=== PATIENT | male | born 1940 | race Caucasian/White ===

== ENCOUNTER 2017-03-24 12:23 | Inpatient (IN) ==
--- NOTE | 2017-03-24 12:34 | Emergency Department Report ---
General Adult HPI - General Stated complaint: Weak,SOA <Apple Chavez 03/24/17 12:35> Time Seen by Provider: 03/24/17 12:25 <Apple Chavez 03/24/17 12:35> Source: patient, EMS <Apple Chavez 03/24/17 12:35> Mode of arrival: EMS <Apple Chavez 03/24/17 12:35> Limitations: no limitations <Apple Chavez 03/24/17 12:35> - History of Present Illness HPI narrative: For the last week he has been having some trouble with weakness. He called EMS today due to feeling SOA however. Had the door open and the AC on as he felt it was easier to breath with the cold air. He does not wear O2 at home but was placed on O2 per EMS due to RA sats of 85%. He does have a history of CHF as well. Denies any fever/chills or chest pain. Has not had an appetite at home but has been taking his Lasix. Was given an Albuterol treatment per EMS en route. <Apple Chavez 03/24/17 13:49> Onset (ago): week(s) (For the last week) <Apple Chavez 03/24/17 12:35> Severity: moderate <Apple Chavez 03/24/17 12:35> Consistency: constant <Apple Chvaez 03/24/17 12:35> Relieving factors: none <Apple Chavez 03/24/17 12:35> Exacerbating factors: none <Apple Chavez 03/24/17 12:35> Associated symptoms: cough, loss of appetite, malaise, shortness of breath < Apple Chavez 03/24/17 12:35> Treatments prior to arrival: none <Apple Chavez 03/24/17 12:35> - Related Data Home Medications Medication Instructions Recorded Confirmed Allopurinol [Zyloprim] 400 mg PO DAILY 03/24/17 03/24/17 Amiodarone [Pacerone] 200 mg PO DAILY 03/24/17 03/24/17 Aspirin [Aspirin EC] 81 mg PO DAILY 03/24/17 03/24/17 Atorvastatin [Lipitor] 40 mg PO HS 03/24/17 03/24/17 Carvedilol [Carvedilol] 6.25 mg PO BID 03/24/17 03/24/17 Docusate Sodium [Colace] 100 mg PO BID 03/24/17 03/24/17 Furosemide [Lasix] 40 mg PO BID 03/24/17 03/24/17 Lisinopril [Prinivil] 2.5 mg PO HS 03/24/17 03/24/17 Nitroglycerin 0.4 mg SL Q5MIN3 PRN 03/24/17 03/24/17 Omeprazole [Prilosec] 20 mg PO DAILY 03/24/17 03/24/17 Potassium Chloride [Klor-Con M20] 20 meq PO BID 03/24/17 03/24/17 <Nold,Apple 03/24/17 12:35> Allergies Allergy/AdvReac Type Severity Reaction Status Date / Time captopril Allergy Unknown Verified 03/24/17 12:58 Penicillins Allergy Unknown Verified 03/24/17 12:58 <Nold,Apple 03/24/17 12:35> Review of Systems Constitutional: Denies: fever, chills <Nold,Apple 03/24/17 12:35> ENT: Denies: ear pain, throat pain, congestion <Nold,Apple 03/24/17 12:35 > Cardiovascular: Reports: dyspnea on exertion. Denies: chest pain, palpitations , edema <Nold,Apple 03/24/17 12:35> Respiratory: Reports: cough, dyspnea, wheezes <Nold,Apple 03/24/17 12:35> Gastrointestinal: Denies: abdominal pain, nausea, vomiting, diarrhea <Nold, Apple 03/24/17 12:35> Integumentary: Denies: rash <Nold,Apple 03/24/17 12:35> Neurological: Reports: weakness. Denies: headache, numbness, paresthesias < Nold,Apple 03/24/17 12:35> PFSH Gout CHF Renal disease Hyperlipidemia GERD Epidural hematoma with craniotomy DE atrial fibrillation PE osteoarthritis <Apple Chavez 03/24/17 13:32> Surgical History: appendectomy. arthroscopy of knee <Apple Chavez 13:32> - Social History Smoking status: Never smoker <Apple Chavez 03/24/17 13:29> Substance use type: does not use <Apple Chavez 03/24/17 13:29> Alcohol intake frequency: does not drink <Apple Chavez 03/24/17 13:29> Physical Exam - Limitations Limitations: no limitations <Apple Chavez 03/24/17 12:35> - General General appearance: alert, in no apparent distress <Apple Chavez 03/24/17 12:35> - Normal Exams: ENMT:: No facial trauma, nasal exudates, pharyngeal erythema, or exudates are noted <Apple Chavez 03/24/17 12:35> Neck:: Full range of motion, without adenopathy, JVD, bruits or thyromegaly < Apple Chavez 03/24/17 12:35> Cardiovascular:: Regular rate and rhythm, without murmur or gallop, Pulses 2+ all extremities, capillary refill, <2 seconds all extremities <Apple Chavez 03/24/17 12:35> Abdomen:: Bowel sounds positive, soft, non-tender, non-distended, no hepatosplenomegaly, masses or bruits noted <Apple Chavez 03/24/17 12:35> Lymphatic:: No lymphadenopathy, or lymphedema noted <Apple Chavez 03/24/17 12:35> Integumentary:: No rashes, hives, or bruising noted <Apple Chavez 03/24/17 12:35> Neurological:: Patient is alert, and oriented <Apple Chavez 03/24/17 12:35> Psychiatric:: Patient exhibits, appropriate attention, emotion and affect < Apple Chavez 03/24/17 12:35> - Respiratory Respiratory exam: Present: wheezes (fine end expiratory wheezes throughout, diminished throughout. ) <Apple Chavez - 03/24/17 12:35> Course Vital Signs Temperature 96.8 F 03/24/17 12:25 Pulse Rate 75 03/24/17 12:25 Respiratory Rate 22 03/24/17 12:25 Blood Pressure 127/78 03/24/17 12:25 Pulse Oximetry 94 03/24/17 12:25 Temperature 96.8 F 03/24/17 12:25 Pulse Rate 75 03/24/17 14:30 Respiratory Rate 24 03/24/17 14:30 Blood Pressure 117/77 03/24/17 14:30 Pulse Oximetry 94 03/24/17 14:30 <Apple Chavez - 03/24/17 13:29> Medical Decision Making - MDM Narrative Medical decision making narrative: WBC is normal. Changes noted on CMP. Troponin is negative. BNP is elevated at 49,000. Reviewed chest xray today. Does show moderate sized pleural effusion. Did attempt to take him off of the O2 but sats back down into the 80s. Did discuss with Dr King and will accept for admission at this time. <Apple Chavez - 03/24/17 15:17> - Differential Diagnosis DD: sepsis, pneumonia, CHF excerbation, UTI, influenza, general weakness, < Apple Chavez - 03/24/17 12:35> - Lab Data Lab results reviewed: Yes: I reviewed the patient's lab results. <Apple Chavez - 03/24/17 13:33> Result diagrams: 03/24/17 12:53 03/24/17 12:53 <Apple Chavez - 03/24/17 12:35> Lab Results 03/24/17 03/24/17 03/24/17 Range/Units 12:53 12:53 12:53 WBC 10.5 (4.5-11.0) T/MM3 RBC 5.23 (4.50-5.90) M/MM3 Hgb 15.5 (13.5-17.5) GM/DL Hct 48.9 (41-53) % MCV 93.5 (80-100) UM3 MCH 29.6 (26-34) UUG MCHC 31.7 (31-37) GM/DL RDW Std Deviation 64.8 H (36.9-50.2) FL Plt Count 137 (130-400) T/MM3 MPV 12.1 (9.4-12.4) UM3 Immature Gran % (Auto) Not performed Neut % (Auto) Not performed Lymph % (Auto) Not performed [place] % (Auto) Not performed Eos % (Auto) Not performed Baso % (Auto) Not performed Neut # (Auto) Not performed Lymph # (Auto) Not performed [place] # (Auto) Not performed Eos # (Auto) Not performed Baso # (Auto) Not performed Abs Immat Gran (auto) Not performed Neutrophils % (Manual) 83.0 H (33-66) % Band Neutrophils % 4.0 (0-6) % Lymphocytes % (Manual) 3.0 L (23-45) % Monocytes % (Manual) 10.0 H (0-9.0) % Neutrophils # (Manual) 8.7 H (1.8-7.7) T/MM3 Band Neutrophils # 0.4 T/MM3 Lymphocytes # (Manual) 0.3 L (1-4.8) T/MM3 Monocytes # (Manual) 1.1 H (0-0.8) T/MM3 Nucleated RBCs 1 Poikilocytosis 2+ Anisocytosis 2+ Tear Drop Cells 1+ Ovalocytes 1+ Rehan Cells 2+ RBC Morph Comment Abnormal Turbidity < 20 (0-20) Sodium 143 (134-144) MEQ/L Potassium 3.7 (3.6-5) MEQ/L Chloride 96 L (98-107) MEQ/L Carbon Dioxide 33 H (22-30) MEQ/L Anion Gap 14 (5-15) MEQ/L BUN 45.0 H (9-20) MG/DL Creatinine 2.0 H (0.8-1.5) MG/DL GFR Calculation 33 BUN/Creatinine Ratio 23 (6-26) RATIO Glucose 103 (75-110) MG/DL Calculated Osmolality 287 H (261-280) MOSM/KG Calcium 9.1 (8.4-10.2) MG/DL Total Bilirubin 2.10 H (0.20-1.30) MG/DL Icterus Index < 2 (0-7) AST 309 H (17-59) U/L ALT 89 H (21-72) U/L Alkaline Phosphatase 148 H (38-126) U/L Troponin I 0.040 (0-0.12) ng/ml B-Natriuretic Peptide 43471 H (0-175) pg/mL Total Protein 7.5 (6.3-8.2) G/DL Albumin 3.8 (3.5-5.0) G/DL Globulin 3.7 H (2.4-3.6) G/DL Albumin/Globulin Ratio 1.0 L (1.1-2.2) RATIO Specimen Hemolysis < 15 (0-25) Influenza Type A (PCR) Negative (Negative) Influenza Type B (PCR) Negative (Negative) <Apple Chavez - 03/24/17 13:29> - Radiology Data Radiology results reviewed: Yes: I reviewed the patient's radiology results. < Apple Chavez - 03/24/17 13:33> Date of Exam: 03/24/17 Ordering Provider: Apple Chavez APRN Type of Exam(s): XR chest 2V Reason for Exam(s): dyspnea EXAM: XR chest 2V COMPARISON: 08/02/2013. 04/26/2011. 04/18/2011. HISTORY: dyspnea . Fatigue. Cough with bloody sputum. Shortness of air for a few weeks. FINDINGS: The heart is enlarged. The bibasilar is mildly prominent. The left lung is relatively clear. There is obscuration of the right hemidiaphragm and blunting of the right costophrenic angle and had an opacity at the right mid and lower lung. There is no evidence for a pneumothorax. Degenerative changes of the right shoulder is noted. IMPRESSION: 1. Cardiomegaly. 2. Interval development of a moderate-sized right pleural effusion and right mid and lower lung atelectasis or consolidation. Clinical correlation is suggested. LOCATION OF DICTATION: [facility] [place] . <Apple Chavez 03/24/17 13:33> - EKG Data EKG #1 EKG attestation: Yes: I reviewed and interpreted this EKG. <JuneNaifNathaniel M 13:39> EKG shows normal: sinus rhythm, intervals, ST-T waves <June,Nathaniel 03/24/17 13:39> [place]/QRS: IVCD <June,Nathaniel 03/24/17 13:39> Disposition Clinical Impression: Congestive heart failure Qualifiers: Congestive heart failure type: unspecified Congestive heart failure chronicity : chronic Qualified Code(s): I50.9 - Heart failure, unspecified <MariamjenniferApple 03/24/17 14:36> Disposition: 02 To [facility] [place] Acute Care <MariamjenniferApple 03/24/17 14:36> Condition: Stable <KathyApple 03/24/17 14:36> Instructions: <MariamjenniferApple 03/24/17 12:35> Prescriptions: No Action Aspirin [Aspirin EC] 81 mg PO DAILY Omeprazole [Prilosec] 20 mg PO DAILY Allopurinol [Zyloprim] 400 mg PO DAILY Docusate Sodium [Colace] 100 mg PO BID Carvedilol [Carvedilol] 6.25 mg PO BID Potassium Chloride [Klor-Con M20] 20 meq PO BID Lisinopril [Prinivil] 2.5 mg PO HS Atorvastatin [Lipitor] 40 mg PO HS Nitroglycerin 0.4 mg SL Q5MIN3 PRN PRN Reason: Chest Pain Amiodarone [Pacerone] 200 mg PO DAILY Furosemide [Lasix] 40 mg PO BID <MariamjenniferApple 03/24/17 12:35> Referrals: Uday Andrews MD [Physician] - <KathyApple 03/24/17 12:35> Forms: <KathyApple 03/24/17 12:35> Time of Disposition: 14:36 <MariamjenniferApple Quin 03/24/17 14:36> - Seen By: midlevel <Apple Chavez 03/24/17 14:36>
--- OUTSIDE RECORDS SUMMARY | 2017-03-24 13:00 | External Medical Summary | Referral Summary ---
:1940 Author [facility] Address [address] [place] [address] [place] [address] Care Team Providers Name Role Phone Hesham Samayoa Primary Care Physician Encounter VC Date(s): 07/03/15 - 07/03/15 [facility] [place] [phone] [place] Discharge Disposition: 01-Home or Self Care Attending Physician: Hesham Samayoa DO Admitting Physician: Hesham Samayoa DO Vital Signs Most recent to oldest [Reference Range]: 1 Peripheral Pulse Rate [60-100 bpm] 73 bpm (07/03/15 1:00 PM) Blood Pressure [90-140/60-90 mmHg] 110/90 mmHg (07/03/15 1:00 PM) SpO2 97 % (07/03/15 1:00 PM) Problem List Condition Effective Dates Status Health Status Informant Acute pain(Confirmed) Active At risk of pressure sore(Confirmed) Active Atrial fibrillation Active (disorder)(Confirmed) Benign essential Active hypertension(Confirmed) Chest pain on exertion(Confirmed) Active patient Chronic renal failure syndrome Active (disorder)(Confirmed) Coronary arteriosclerosis Active (disorder)(Confirmed) Edema(Confirmed) Active patient Gout (disorder)(Confirmed) Active Obesity(Confirmed) Active patient Tissue perfusion Active alteration(Confirmed)1 1Problem added automatically by system based on initiation of Tissue Perfusion Cerebral Plan of Care Allergies, Adverse Reactions, Alerts Substance Reaction Severity Status penicillin Active Medications allopurinol 100 mg oral tablet 100 mg 1 tabs, Oral, BID, X 90 days, # 180 tabs, 1 Refill(s), Pharmacy: [facility], 1 tabs Oral BID,x90 days Start Date: 04/11/15 Stop Date: 10/08/15 Status: Orderedamiodarone 200 mg oral tablet 200 mg 1 tabs, Oral, Daily, X 90 days, # 90 tabs, 1 Refill(s), Pharmacy: [facility], 1 tabs Oral Daily,x90 days Start Date: 04/11/15 Stop Date: 10/08/15 Status: Orderedaspirin 81 mg oral tablet 81 mg 1 tabs, Oral, Daily, # 30 tabs, 0 Refill(s), Pharmacy: [facility], 1 tabs Oral Daily Start Date: 04/11/15 Status: Orderedatorvastatin 40 mg oral tablet See Instructions, TAKE 1 TABLET AT BEDTIME ONCE A DAY, # 90 tabs, 3 Refill(s) , Pharmacy: [facility], TAKE 1 TABLET AT BEDTIME ONCE A DAY Start Date: 04/11/15 Status: OrderedcloNIDine 0.1 mg oral tablet 0.2 mg 2 tabs, Oral, BID, # 120 tabs, 0 Refill(s), other reason (Rx), 2 tabs Oral BID,x30 days Start Date: 06/17/15 Stop Date: 07/17/15 Status: OrderedCoreg 25 mg oral tablet 25 mg 1 tabs, Oral, BID, # 60 tabs, 0 Refill(s), other reason (Rx) Start Date: 06/17/15 Status: Ordereddocusate sodium 100 mg oral tablet 100 mg 1 tabs, Oral, BID, # 180 tabs, 3 Refill(s), Pharmacy: [facility], 1 tabs Oral BID,x90 days Start Date: 04/11/15 Stop Date: 04/05/16 Status: OrderedLasix 40 mg oral tablet 40 mg 1 tabs, Oral, BID, X 90 days, # 180 tabs, 1 Refill(s), Pharmacy: [facility], 1 tabs Oral BID,x90 days Start Date: 04/11/15 Stop Date: 10/08/15 Status: Orderedlisinopril 10 mg oral tablet 10 mg 1 tabs, Oral, Daily, # 30 tabs, 0 Refill(s), other reason (Rx), 1 tabs Oral Daily Start Date: 07/03/15 Status: OrderedMiscellaneous DME DME Item DuoDerm extra thin CGF dressing. Size 4" x 4" diag - L89.90, See Instructions, # 1 boxes, 0 Refill(s), Pharmacy: [facility] #[id number], DuoDerm extra thin CGF dressing. Size 4" x 4"; diag - L89.90, Supply Start Date: 06/06/15 Status: Orderedomeprazole 20 mg oral delayed release capsule 20 mg 1 caps, Oral, Daily, # 90 caps, 0 Refill(s), Pharmacy: [facility], 1 caps Oral Daily Start Date: 04/11/15 Status: Orderedpotassium chloride 20 mEq oral tablet, extended release 20 mEq 1 tabs, Oral, Daily, X 90 days, # 90 tabs, 1 Refill(s), Pharmacy: [facility], 1 tabs Oral Daily,x90 days Start Date: 04/11/15 Stop Date: 10/08/15 Status: Ordered Results No data available for this section Immunizations No data available for this section Procedures Procedure Date Related Diagnosis Body Site Bypass Graft Coronary Artery1 08/15/13 Angioplasty2 Appendectomy 1auto-populated from documented surgical case2X 5 Social History Social History Type Response Smoking Status Former smoker; Type: Cigarettes; Type: Cigars; Number of years: 301 1Quit at age 51 Assessment and Plan Extracted from: Title: Office Visit Note Author: Hesham Samayoa DO Date: 07/03/15 Assessment/Plan HTN (hypertension) 1. Blood pressure is better controlled. 2. Continue with the current regimen of lisinopril 10 mg daily, clonidine 0.2 mg daily and carvedilol 25 mg twice a day. 3. Low salt diet recommended. 4. Follow-up in a month for blood pressure management. 5. Continue with wound care for management of the ulcer on the left lower extremity. Ordered: Office Visit Level 3 Est [id number] Orders: lisinopril, 10 mg 1 tabs, Oral, Daily, # 30 tabs, 0 Refill(s), other reason (Rx), 1 tabs Oral Daily
--- OUTSIDE RECORDS SUMMARY | 2017-03-24 13:00 | External Medical Summary | Referral Summary ---
:1940 Author Organization [facility] [place] [address] Care Team Providers Name Role Phone Hesham Samayoa Primary Care Physician Encounter VC Date(s): 10/07/14 - 10/07/14 [facility] [place] [phone] [place] Discharge Disposition: 01-Home or Self Care Attending Physician: Uday Andrews MD Admitting Physician: Uday Andrews MD Vital Signs Most recent to oldest [Reference Range]: 1 Temperature Tympanic [36.6-38.1 degC] 37.5 degC (10/07/14 2:34 PM) Blood Pressure [90-140/60-90 mmHg] 162/100 mmHg *HI* (10/07/14 2:34 PM) Problem List Condition Effective Dates Status [...] days, # 180 tabs, 1 Refill(s), Pharmacy: [facility], 1 tabs Oral BID,x90 days Start Date: 04/11/15 Stop Date: 10/08/15 Status: Orderedamiodarone 200 mg oral tablet 200 mg 1 tabs, Oral, Daily, X 90 days, # 90 tabs, 1 Refill(s), Pharmacy: [facility], 1 tabs Oral Daily,x90 days Start Date: 04/11/15 Stop Date: 10/08/15 Status: Orderedaspirin 81 mg oral tablet 81 mg 1 tabs, Oral, Daily, # 30 tabs, 0 Refill(s), Pharmacy: [facility], 1 tabs Oral Daily Start Date: 04/11/15 Status: Orderedatorvastatin 40 mg oral tablet See Instructions, TAKE 1 TABLET AT BEDTIME ONCE A DAY, # 90 tabs, 3 Refill(s) , Pharmacy: [facility], TAKE 1 TABLET AT BEDTIME ONCE A DAY Start Date: 04/11/15 Status: OrderedCoreg 6.25 mg oral tablet See Instructions, TAKE 1 TABLET TWICE A DAY, # 180 tabs, 1 Refill(s), Pharmacy: [facility], TAKE 1 TABLET TWICE A DAY Start Date: 04/11/15 Status: Ordereddocusate sodium 100 mg oral tablet 100 mg 1 tabs, Oral, BID, # 180 tabs, 3 Refill(s), Pharmacy: [facility], 1 tabs Oral BID,x90 days Start Date: 04/11/15 Stop Date: 04/05/16 Status: OrderedLasix 40 mg oral tablet 40 mg 1 tabs, Oral, BID, X 90 days, # 180 tabs, 1 Refill(s), Pharmacy: [facility], 1 tabs Oral BID,x90 days Start Date: 04/11/15 Stop Date: 10/08/15 Status: Orderedlisinopril 10 mg oral tablet 10 mg 1 tabs, Oral, Daily, # 30 tabs, 0 Refill(s), Pharmacy: [facility] # [id number], 1 tabs Oral Daily Start Date: 04/11/15 Status: Orderedomeprazole 20 mg oral delayed release capsule 20 mg 1 caps, Oral, Daily, # 90 caps, 0 Refill(s), Pharmacy: [facility], 1 caps Oral Daily Start Date: 04/11/15 Status: Orderedpotassium chloride 20 mEq oral tablet, extended release 20 mEq 1 tabs, Oral, Daily, X 90 days, # 90 tabs, 1 Refill(s), Pharmacy: [facility], 1 tabs Oral Daily,x90 days Start Date: 04/11/15 Stop Date: 10/08/15 Status: Ordered Results Hematology Most recent to oldest [Reference Range]: 1 WBC [4.8-10.8 10*3/uL] 9.1 10*3/uL (10/07/14 3:20 PM) RBC [4.60-6.20 10*6/uL] 5.17 10*6/uL (10/07/14 3:20 PM) Hgb [14.0-18.0 gm/dL] 15.2 gm/dL (10/07/14 3:20 PM) Hct [42.0-52.0 %] 46.3 % (10/07/14 3:20 PM) MCV [82.0-99.0 fL] 89.6 fL (10/07/14 3:20 PM) MCH [27.0-32.0 pg] 29.4 pg (10/07/14 3:20 PM) MCHC [32.0-36.0 gm/dL] 32.8 gm/dL (10/07/14 3:20 PM) RDW [11.5-14.5 %] 15.2 % *HI* (10/07/14 3:20 PM) Platelet [150-400 10*3/uL] 204 10*3/uL (10/07/14 3:20 PM) MPV [8.8-14.8 fL] 12.2 fL (10/07/14 3:20 PM) Immature Granulocytes [0.0-1.0 %] 0.1 % (10/07/14 3:20 PM) Neutrophils [51-75 %] 72 % (10/07/14 3:20 PM) Lymphocytes [20-46 %] 18 % *LOW* (10/07/14 3:20 PM) Monocytes [4-11 %] 8 % (10/07/14 3:20 PM) Eosinophils [0-4 %] 1 % (10/07/14 3:20 PM) Basophils [0-2 %] 0 % (10/07/14 3:20 PM) Neutro Absolute [1.90-7.00 10*3] 6.56 10*3 (10/07/14 3:20 PM) Lymph Absolute [0.80-3.30 10*3] 1.64 10*3 (10/07/14 3:20 PM) White Absolute [0.30-1.00 10*3] 0.72 10*3 (10/07/14 3:20 PM) Eos Absolute [0.00-0.50 10*3] 0.12 10*3 (10/07/14 3:20 PM) Baso Absolute [0.00-0.20 10*3] 0.03 10*3 (10/07/14 3:20 PM) Sed Rate [0-15 mm/hr] 6 mm/hr (10/07/14 3:20 PM) Chemistry Most recent to oldest [Reference Range]: 1 Sodium Lvl [135-144 mEq/L] 140 mEq/L (10/07/14 3:20 PM) Potassium Lvl [3.5-5.2 mEq/L] 4.1 mEq/L (10/07/14 3:20 PM) Chloride [99-111 mEq/L] 103 mEq/L (10/07/14 3:20 PM) CO2 [23-31 mEq/L] 27 mEq/L (10/07/14 3:20 PM) AGAP [3-20] 10 (10/07/14 3:20 PM) BUN [8-26 mg/dL] 16 mg/dL (10/07/14 3:20 PM) Glucose Lvl [70-99 mg/dL] 96 mg/dL (10/07/14 3:20 PM) Creatinine Lvl [0.72-1.25 mg/dL] 1.28 mg/dL *HI* (10/07/14 3:20 PM) eGFR [>60 mL/min] 55 mL/min 1 *ABN* (10/07/14 3:20 PM) Calcium Lvl [8.9-10.5 mg/dL] 9.5 mg/dL (10/07/14 3:20 PM) Albumin Lvl [3.4-4.8 gm/dL] 4.6 gm/dL (10/07/14 3:20 PM) Total Protein [6.2-8.1 gm/dL] 7.3 gm/dL (10/07/14 3:20 PM) Globulin [1.8-4.0 gm/dL] 2.7 gm/dL (10/07/14 3:20 PM) ALT [0-55 U/L] 11 U/L (10/07/14 3:20 PM) AST [5-34 U/L] 17 U/L (10/07/14 3:20 PM) Alk Phos [40-150 U/L] 102 U/L (10/07/14 3:20 PM) Bili Total [0.2-1.2 mg/dL] 0.5 mg/dL (10/07/14 3:20 PM) Uric Acid [3.5-7.2 mg/dL] 5.5 mg/dL (10/07/14 3:20 PM) LDL Direct [0-129 mg/dL] 72 mg/dL (10/07/14 3:20 PM) Hgb A1c [4.1-5.6 %] 5.4 % (10/07/14 3:20 PM) eAvg Glucose 108.3 mg/dL (10/07/14 3:20 PM) 1Result Comment: Multiply eGFR results by 1.21 for race. Immunizations No data available for this section Procedures Procedure Date Related Diagnosis Body Site Bypass Graft Coronary Artery1 08/15/13 Angioplasty2 Appendectomy 1auto-populated from documented surgical case2X 5 Social History Social History Type Response Smoking Status Former smoker; Type: Cigarettes; Type: Cigars; Number of years: 301 1Quit at age 51 Assessment and Plan Extracted from: Title: Office Visit Note Author: Uday Andrews MD Date: 10/07/14 Assessment/Plan Atrial fibrillation (disorder) Ordered: Comprehensive Metabolic Panel Benign essential hypertension Chronic renal failure syndrome (disorder) Coronary arteriosclerosis (disorder) Ordered: LDL Direct Gout (disorder) Ordered: CBC w/ Differential Sedimentation Rate Uric Acid Hyperglycemia Plan: I am going to place U on Diflucan. Use Monistat cream on the rash. Follow-up in one week if not improved. Continue all other current medications. Before your next appointment in 6 months I would like to check a lipid panel and a CMP and a uric acid and a sedimentation rate and a CBC. Today I'm checking a CBC uric acid sedimentation rate CMP and LDL. Ordered: Hemoglobin A1c Orders: fluconazole, 100 mg 1 tabs, Oral, Daily, X 10 days, # 10 tabs, 0 Refill(s), Pharmacy: [facility] #[id number], 1 tabs Oral Daily,x10 days Addendum by Uday Andrews MD on September He did have multiple red flat round rashes 2014 16:47:49 CDT on his abdomen axillary region and groin area. With like tinea or candidiasis. Addendum by Uday Andrews MD on September Recheck blood pressure was 132/82. 2014 16:49:52 CDT
--- OUTSIDE RECORDS SUMMARY | 2017-03-24 13:01 | External Medical Summary | Referral Summary ---
:1940 Author Organization [facility] [place] [address] Care Team Providers Name Role Phone Hesham Samayoa Primary Care Physician Encounter VC Date(s): 04/11/15 - 04/11/15 [facility] [place] [phone] Discharge Diagnosis: HTN (hypertension) Discharge Diagnosis: Gout (disorder) Discharge Diagnosis: Dependent edema Discharge Diagnosis: Coronary arteriosclerosis Discharge Disposition: 01-Home or Self Care Attending Physician: Hesham Samayoa DO Admitting Physician: Hesham Samayoa DO Vital Signs Most recent to oldest [Reference Range]: 1 Temperature Tympanic [36.6-38.1 degC] 36.9 degC (04/11/15 1:43 PM) Peripheral Pulse Rate [60-100 bpm] 92 bpm (04/11/15 1:43 PM) Blood Pressure [90-140/60-90 mmHg] 175/100 mmHg *HI* (04/11/15 1:43 PM) Problem List Condition Effective Dates Status [...] days, # 180 tabs, 1 Refill(s), Pharmacy: [facility], 1 tabs Oral BID,x90 days Start Date: 04/11/15 Stop Date: 10/08/15 Status: Orderedamiodarone 200 mg oral tablet 200 mg 1 tabs, Oral, Daily, X 90 days, # 90 tabs, 1 Refill(s), Pharmacy: [facility], 1 tabs Oral Daily,x90 days Start Date: 04/11/15 Stop Date: 10/08/15 Status: Orderedaspirin 81 mg oral tablet 81 mg 1 tabs, Oral, Daily, # 30 tabs, 0 Refill(s), Pharmacy: [facility], 1 tabs Oral Daily Start Date: 04/11/15 Status: Orderedatorvastatin 40 mg oral tablet See Instructions, TAKE 1 TABLET AT BEDTIME ONCE A DAY, # 90 tabs, 3 Refill(s) , Pharmacy: [facility], TAKE 1 TABLET AT BEDTIME ONCE A DAY Start Date: 04/11/15 Status: OrderedCoreg 6.25 mg oral tablet See Instructions, TAKE 1 TABLET TWICE A DAY, # 180 tabs, 1 Refill(s), Pharmacy: [facility], TAKE 1 TABLET TWICE A DAY Start Date: 04/11/15 Status: Ordereddocusate sodium 100 mg oral tablet 100 mg 1 tabs, Oral, BID, # 180 tabs, 3 Refill(s), Pharmacy: [facility], 1 tabs Oral BID,x90 days Start Date: 04/11/15 Stop Date: 04/05/16 Status: OrderedLasix 40 mg oral tablet 40 mg 1 tabs, Oral, BID, X 90 days, # 180 tabs, 1 Refill(s), Pharmacy: [facility], 1 tabs Oral BID,x90 days Start Date: 04/11/15 Stop Date: 10/08/15 Status: Orderedlisinopril 10 mg oral tablet 10 mg 1 tabs, Oral, Daily, # 30 tabs, 0 Refill(s), Pharmacy: [facility] # [id number], 1 tabs Oral Daily Start Date: 04/11/15 Status: Orderedomeprazole 20 mg oral delayed release capsule 20 mg 1 caps, Oral, Daily, # 90 caps, 0 Refill(s), Pharmacy: [facility], 1 caps Oral Daily Start Date: 04/11/15 Status: Orderedpotassium chloride 20 mEq oral tablet, extended release 20 mEq 1 tabs, Oral, Daily, X 90 days, # 90 tabs, 1 Refill(s), Pharmacy: [facility], 1 tabs Oral Daily,x90 days Start [...] Visit Note Author: Hesham Samayoa DO Date: 04/11/15 Assessment/Plan Arrhythmia 1. Continue with amiodarone and carvedilol as previous. 2. Follow-up with her neurologist at his scheduled appointment. Ordered: Office Visit Level 4 Est 64640 Coronary arteriosclerosis 1. As above. Dependent edema 1. Continue with Lasix twice a day. 2.Continue with potassium daily. 3. Low salt diet recommended. Gout (disorder) 1. Continue with allopurinol as previous. 2. No function tests in 3 months. HTN (hypertension) 1.Blood pressure continues to be elevated. 2. Increase lisinopril to 10 mg daily. 3. Low salt diet recommended. 4. Follow-up in one month for reevaluation. Mixed hyperlipidemia 1. Continue with atorvastatin as previous. 2.Healthy Lifestyle changes recommended. 3. Weight loss recommended. Ordered: Office Visit Level 4 Est 65745 Orders: allopurinol, 100 mg 1 tabs, Oral, BID, X 90 days, # 180 tabs, 1 Refill(s), Pharmacy: [facility], 1 tabs Oral BID,x90 days amiodarone, 200 mg 1 tabs, Oral, Daily, X 90 days, # 90 tabs, 1 Refill(s), Pharmacy: [facility], 1 tabs Oral Daily,x90 days aspirin, 81 mg 1 tabs, Oral, Daily, # 30 tabs, 0 Refill(s), Pharmacy: [facility], 1 tabs Oral Daily atorvastatin, See Instructions, TAKE 1 TABLET AT BEDTIME ONCE A DAY, # 90 tabs, 3 Refill(s), Pharmacy: [facility], TAKE 1 TABLET AT BEDTIME ONCE A DAY carvedilol, See Instructions, TAKE 1 TABLET TWICE A DAY, # 180 tabs, 1 Refill (s), Pharmacy: [facility], TAKE 1 TABLET TWICE A DAY docusate, 100 mg 1 tabs, Oral, BID, # 180 tabs, 3 Refill(s), Pharmacy: [facility], 1 tabs Oral BID,x90 days furosemide, 40 mg 1 tabs, Oral, BID, X 90 days, # 180 tabs, 1 Refill(s), Pharmacy: [facility], 1 tabs Oral BID,x90 days lisinopril, 10 mg 1 tabs, Oral, Daily, # 30 tabs, 0 Refill(s), Pharmacy: [facility] #[id number], 1 tabs Oral Daily omeprazole, 20 mg 1 caps, Oral, Daily, # 90 caps, 0 Refill(s), Pharmacy: [facility], 1 caps Oral Daily potassium chloride, 20 mEq 1 tabs, Oral, Daily, X 90 days, # 90 tabs, 1 Refill(s), Pharmacy: [facility], 1 tabs Oral Daily,x90 days
--- OUTSIDE RECORDS SUMMARY | 2017-03-24 13:01 | External Medical Summary | Referral Summary ---
:1940 Author Organization [facility] [place] [address] Care Team Providers Name Role Phone Hesham Samayoa Primary Care Physician Encounter VC Date(s): 06/17/15 - 06/17/15 [facility] [place] [phone]- Discharge Diagnosis: Chronic skin ulcer Discharge Diagnosis: Poorly-controlled hypertension Discharge Disposition: 01-Home or Self Care Attending Physician: Hesham Samayoa DO Admitting Physician: Hesham Samayoa DO Vital Signs Most recent to oldest [Reference Range]: 1 Temperature Tympanic [36.6-38.1 degC] 36.5 degC *LOW* (06/17/15 1:37 PM) Peripheral Pulse Rate [60-100 bpm] 71 bpm (06/17/15 1:37 PM) Blood Pressure [90-140/60-90 mmHg] 155/105 mmHg *HI* (06/17/15 1:37 PM) SpO2 96 % (06/17/15 1:37 PM) Problem List Condition Effective Dates Status [...] days, # 180 tabs, 1 Refill(s), Pharmacy: [facility], 1 tabs Oral BID,x90 days Start Date: 04/11/15 Stop Date: 10/08/15 Status: Orderedamiodarone 200 mg oral tablet 200 mg 1 tabs, Oral, Daily, X 90 days, # 90 tabs, 1 Refill(s), Pharmacy: [facility], 1 tabs Oral Daily,x90 days Start Date: 04/11/15 Stop Date: 10/08/15 Status: Orderedaspirin 81 mg oral tablet 81 mg 1 tabs, Oral, Daily, # 30 tabs, 0 Refill(s), Pharmacy: [facility], 1 tabs Oral Daily Start Date: 04/11/15 Status: Orderedatorvastatin 40 mg oral tablet See Instructions, TAKE 1 TABLET AT BEDTIME ONCE A DAY, # 90 tabs, 3 Refill(s) , Pharmacy: [facility], TAKE 1 TABLET AT [...] BID, # 180 tabs, 3 Refill(s), Pharmacy: [facility], 1 tabs Oral BID,x90 days Start Date: 04/11/15 Stop Date: 04/05/16 Status: OrderedLasix 40 mg oral tablet 40 mg 1 tabs, Oral, BID, X 90 days, # 180 tabs, 1 Refill(s), Pharmacy: [facility], 1 tabs Oral BID,x90 days Start Date: 04/11/15 Stop Date: 10/08/15 Status: Orderedlisinopril 20 mg oral tablet 20 mg 1 tabs, Oral, Daily, # 30 tabs, 2 Refill(s), Pharmacy: [facility] # [id number] Start Date: 06/09/15 Status: OrderedMiscellaneous DME DME Item DuoDerm extra thin CGF dressing. Size 4" x 4" diag - L89.90, See Instructions, # 1 boxes, 0 Refill(s), Pharmacy: [facility] #[id number], DuoDerm extra thin CGF dressing. Size 4" x 4"; diag - L89.90, Supply Start Date: 06/06/15 Status: Orderedomeprazole 20 mg oral delayed release capsule 20 mg 1 caps, Oral, Daily, # 90 caps, 0 Refill(s), Pharmacy: [facility], 1 caps Oral Daily Start Date: 04/11/15 Status: Orderedpotassium chloride 20 mEq oral tablet, extended release 20 mEq 1 tabs, Oral, Daily, X 90 days, # 90 tabs, 1 Refill(s), Pharmacy: [facility], 1 tabs Oral Daily,x90 [...] Visit Note Author: Hesham Samayoa DO Date: 06/17/15 Assessment/Plan Chronic skin ulcer 1. This wound appears to be worse compared to 2 weeks ago. 2. We will refer him to the wound clinic for farther evaluation and management. Ordered: Office Visit Level 4 Est 54368 Poorly-controlled hypertension 1. Blood pressure continues to be poorly controlled. 2. Continue avoiding salt. 3. Increase carvedilol to 25 mg twice a day. 4. Increase clonidine to 0.2 mg twice a day. 5. Continue with lisinopril 20 mg daily. 6. Follow-up in one week for reevaluation, sooner if symptomatic. Ordered: Office Visit Level 4 Est 60305 Orders: carvedilol, 25 mg 1 tabs, Oral, BID, # 60 tabs, 0 Refill(s), other reason (Rx) cloNIDine, 0.2 mg 2 tabs, Oral, BID, # 120 tabs, 0 Refill(s), other reason ( Rx), 2 tabs Oral BID,x30 days
--- OUTSIDE RECORDS SUMMARY | 2017-03-24 13:01 | External Medical Summary | Referral Summary ---
:1940 Author Organization [facility] [place] [address] Care Team Providers Name Role Phone Hesham Samayoa Primary Care Physician Encounter VC Date(s): 05/12/15 - 05/12/15 [facility] [place] [phone] [place] Discharge Diagnosis: Leg sore Discharge Diagnosis: Dystrophic nail Discharge Diagnosis: Hypertension, poor control Discharge Diagnosis: Onychomycosis of toenail Discharge Disposition: 01-Home or Self Care Attending Physician: Hesham Samayoa DO Admitting Physician: Hesham Samayoa DO Vital Signs Most recent to oldest [Reference Range]: 1 Temperature Tympanic [36.6-38.1 degC] 36.7 degC (05/12/15 1:18 PM) Peripheral Pulse Rate [60-100 bpm] 80 bpm (05/12/15 1:18 PM) Blood Pressure [90-140/60-90 mmHg] 146/100 mmHg *HI* (05/12/15 1:18 PM) Problem List Condition Effective Dates Status [...] days, # 180 tabs, 1 Refill(s), Pharmacy: Pharmacy, 1 tabs Oral BID,x90 days Start Date: 04/11/15 Stop Date: 10/08/15 Status: Orderedamiodarone 200 mg oral tablet 200 mg 1 tabs, Oral, Daily, X 90 days, # 90 tabs, 1 Refill(s), Pharmacy: Pharmacy, 1 tabs Oral Daily,x90 days Start Date: 04/11/15 Stop Date: 10/08/15 Status: Orderedaspirin 81 mg oral tablet 81 mg 1 tabs, Oral, Daily, # 30 tabs, 0 Refill(s), Pharmacy: Pharmacy, 1 tabs Oral Daily Start Date: 04/11/15 Status: Orderedatorvastatin 40 mg oral tablet See Instructions, TAKE 1 TABLET AT BEDTIME ONCE A DAY, # 90 tabs, 3 Refill(s) , Pharmacy: Pharmacy, TAKE 1 TABLET AT BEDTIME ONCE A DAY Start Date: 04/11/15 Status: OrderedCoreg 6.25 mg oral tablet See Instructions, TAKE 1 TABLET TWICE A DAY, # 180 tabs, 1 Refill(s), Pharmacy: Pharmacy, TAKE 1 TABLET TWICE A DAY Start Date: 04/11/15 Status: Ordereddocusate sodium 100 mg oral tablet 100 mg 1 tabs, Oral, BID, # 180 tabs, 3 Refill(s), Pharmacy: Pharmacy, 1 tabs Oral BID,x90 days Start Date: 04/11/15 Stop Date: 04/05/16 Status: OrderedLasix 40 mg oral tablet 40 mg 1 tabs, Oral, BID, X 90 days, # 180 tabs, 1 Refill(s), Pharmacy: Pharmacy, 1 tabs Oral BID,x90 days Start Date: 04/11/15 Stop Date: 10/08/15 Status: Orderedlisinopril 10 mg oral tablet 10 mg 1 tabs, Oral, Daily, # 30 tabs, 2 Refill(s), Pharmacy: Pharmacy, 1 tabs Oral Daily Start Date: 05/02/15 Status: Orderedomeprazole 20 mg oral delayed release capsule 20 mg 1 caps, Oral, Daily, # 90 caps, 0 Refill(s), Pharmacy: Pharmacy, 1 caps Oral Daily Start Date: 04/11/15 Status: Orderedpotassium chloride 20 mEq oral tablet, extended release 20 mEq 1 tabs, Oral, Daily, X 90 days, # 90 tabs, 1 Refill(s), Pharmacy: Pharmacy, 1 tabs Oral Daily,x90 days Start Date: 04/11/15 Stop Date: 10/08/15 Status: Orderedsenna 25 mg oral tablet 25 mg 1 tabs, Oral, BID, as needed for constipation, # 60 tabs, 0 Refill(s), Pharmacy: [facility] #[id number], 1 tabs Oral BID,PRN:as needed for constipation Start Date: 05/12/15 Stop Date: 06/12/15 Status: Ordered Results No data available for this section Immunizations No data available for this section Procedures Procedure Date Related Diagnosis Body Site Trimming of nondystrophic nails, any number 05/12/15 Bypass Graft Coronary Artery1 08/15/13 Angioplasty2 Appendectomy 1auto-populated from documented surgical case2X 5 Social History Social History Type Response Smoking Status Former smoker; Type: Cigarettes; Type: Cigars; Number of years: 301 1Quit at age 51 Assessment and Plan Extracted from: Title: Office Visit Note Author: Hesham Samayoa DO Date: 05/12/15 Assessment/Plan Constipation 1. Prescription sent out for senna. Take as directed on a when necessary basis. Dystrophic nail 1. His toenails are significantly thickened and dystrophic. All 10 toenails were trimmed today. Patient tolerated procedure well. Ordered: Office Visit Level 4 Est 37425 Trimming Of Nondystrophic Nails, Any Number 51033 Hypertension, poor control 1. His blood pressure is poorly controlled. 2. Low salt diet recommended. 3. Increase Coreg to 12.5 mg twice a day. 4. Increase lisinopril to 20 mg daily. 5. Follow-up in 2 weeks for blood pressure management, sooner if any new concerns. Ordered: Office Visit Level 4 Est 01941 Leg sore 1. Wound care done today sore on the left mid smith region. DuoDERM dressing was applied and wound care instructions provided. 2. Follow-up in 2 weeks for reevaluation, sooner if any new concerns. Ordered: Office Visit Level 4 Est 27134 Onychomycosis of toenail As above Ordered: Office Visit Level 4 Est 08288 Trimming Of Nondystrophic Nails, Any Number [id number] Orders: senna, 25 mg 1 tabs, Oral, BID, as needed for constipation, # 60 tabs , 0 Refill(s), Pharmacy: [facility] #[id number], 1 tabs Oral BID,PRN:as needed for constipation
--- OUTSIDE RECORDS SUMMARY | 2017-03-24 13:01 | External Medical Summary | Continuity of Care Document ---
:1940 Author Organization Via [facility] Allergies Active Description Code Type Severity Reaction Onset Reported/ Identified Relationship Clinical to Patient Status Yes penicillin NKMA N/A N/A 06/28/2013 Medications There is no data. Problems There is no data. Procedures Code [place] [address] Office or 07/03/2015 other outpatient visit for the evaluation and management of an established patient, which requires at least 2 of these 3 nick components: An expanded problem focused history; An expanded prob Results There is no data. Encounters ACCT No. Visit Discharge Status Pt. Type Provider Facility Loc./Unit Complaint Date/Time [id number] 03/07/2013 03/07/2013 CLS Outpatient 13:34:00 23:59:59 [id number] 07/03/2015 07/03/2015 DIS Outpatient [facility], [facility] blood 10 12:43:00 23:59:00 Hesham Vela pressure Clinic check [id number] 06/06/2015 06/06/2015 DIS Outpatient [facility], [facility] 2WK RCK 60 13:48:00 23:59:00 Hesham Vela FROM Clinic 3.14.16 [id number] 05/12/2015 05/12/2015 DIS Outpatient [facility], [facility] 1 month 89 13:11:00 23:59:00 Hesham Vela HTN Clinic [id number] 04/11/2015 04/11/2015 DIS Outpatient [facility], [facility] NPT EST 60 13:22:00 23:59:00 Hesham SCOTT FROM Clinic TECK [id number] 10/07/2014 10/07/2014 DIS Outpatient Darryl, [facility] med ck 36 14:09:00 23:59:00 Uday Vela [facility]
--- OUTSIDE RECORDS SUMMARY | 2017-03-24 13:01 | External Medical Summary | Referral Summary ---
:1940 Author Organization [facility] [place] [address] Care Team Providers Name Role Phone Hesham Samayoa Primary Care Physician Encounter VC Date(s): 06/06/15 - 06/06/15 [facility] [place] [phone] [place] Discharge Disposition: 01-Home or Self Care Attending Physician: Hesham Samayoa DO Admitting Physician: Hesham Samayoa DO Vital Signs Most recent to oldest [Reference Range]: 1 Peripheral Pulse Rate [60-100 bpm] 76 bpm (06/06/15 1:56 PM) Blood Pressure [90-140/60-90 mmHg] 170/95 mmHg *HI* (06/06/15 1:56 PM) Problem List Condition Effective Dates Status [...] days, # 180 tabs, 1 Refill(s), Pharmacy: [facility], 1 tabs Oral BID,x90 days Start Date: 04/11/15 Stop Date: 10/08/15 Status: Orderedamiodarone 200 mg oral tablet 200 mg 1 tabs, Oral, Daily, X 90 days, # 90 tabs, 1 Refill(s), Pharmacy: [facility], 1 tabs Oral Daily,x90 days Start Date: 04/11/15 Stop Date: 10/08/15 Status: Orderedaspirin 81 mg oral tablet 81 mg 1 tabs, Oral, Daily, # 30 tabs, 0 Refill(s), Pharmacy: [facility], 1 tabs Oral Daily Start Date: 04/11/15 Status: Orderedatorvastatin 40 mg oral tablet See Instructions, TAKE 1 TABLET AT BEDTIME ONCE A DAY, # 90 tabs, 3 Refill(s) , Pharmacy: [facility], TAKE 1 TABLET AT BEDTIME ONCE A DAY Start Date: 04/11/15 Status: OrderedcloNIDine 0.1 mg oral tablet 0.1 mg 1 tabs, Oral, BID, # 60 tabs, 0 Refill(s), Pharmacy: [facility] # [id number], 1 tabs Oral BID Start Date: 06/06/15 Status: OrderedCoreg 6.25 mg oral tablet See Instructions, TAKE 1 TABLET TWICE A DAY, # 180 tabs, 1 Refill(s), Pharmacy: [facility], TAKE 1 TABLET TWICE A DAY Start Date: 04/11/15 Status: Ordereddocusate sodium 100 mg oral tablet 100 mg 1 tabs, Oral, BID, # 180 tabs, 3 Refill(s), Pharmacy: [facility], 1 tabs Oral BID,x90 days Start Date: 04/11/15 Stop Date: 04/05/16 Status: OrderedLasix 40 mg oral tablet 40 mg 1 tabs, Oral, BID, X 90 days, # 180 tabs, 1 Refill(s), Pharmacy: [facility], 1 tabs Oral BID,x90 days Start Date: 04/11/15 Stop Date: 10/08/15 Status: Orderedlisinopril 10 mg oral tablet 10 mg 1 tabs, Oral, Daily, # 30 tabs, 2 Refill(s), Pharmacy: [facility], 1 tabs Oral Daily Start Date: 05/02/15 Status: OrderedMiscellaneous DME DME Item DuoDerm extra thin CGF dressing. Size 4" x 4" diag - L89.90, See Instructions, # 1 boxes, 0 Refill(s), Pharmacy: [facility] #[id number], DuoDerm extra thin CGF dressing. Size 4" x 4"; diag - L89.90, Supply Start Date: 06/06/15 Status: Orderedomeprazole 20 mg oral delayed release capsule 20 mg 1 caps, Oral, Daily, # 90 caps, 0 Refill(s), Pharmacy: [facility], 1 caps Oral Daily Start Date: 04/11/15 Status: Orderedpotassium chloride 20 mEq oral tablet, extended release 20 mEq 1 tabs, Oral, Daily, X 90 days, # 90 tabs, 1 Refill(s), Pharmacy: [facility], 1 tabs Oral Daily,x90 days Start Date: 04/11/15 Stop Date: 10/08/15 Status: Orderedsenna 25 mg oral tablet 25 mg 1 tabs, Oral, BID, as needed for constipation, # 60 tabs, 0 Refill(s), Pharmacy: [facility] #[id number], 1 tabs Oral BID,PRN:as needed for constipation [...] Visit Note Author: Hesham Samayoa DO Date: 06/06/15 Assessment/Plan Constipation 1. Continue with Dulcolax as previous. 2. Follow-up if worsening presentation, we may consider MiraLAX on a daily basis. 3. Recommended diet high in fiber and ensuring that he is drinking enough water. Ordered: Office Visit Level 4 Est 01939 HTN (hypertension) 1. Blood pressure continues to be poorly controlled. 2. Low salt diet recommended. 3. Continue with Coreg 12.5 mg twice a day. 4. Continue with lisinopril 20 mg daily. 5. We added clonidine 0.1 mg twice a day. 6. Follow-up in one week for reevaluation. Ordered: Office Visit Level 4 Est 94135 Visit for wound care 1. DuoDERM dressing was changed today. 2. Prescription was sent out for new patches, he is to change them every third day or as needed. 3. If the wound does not appear to be looking any better next week then we may consider sending him to wound care clinic. Ordered: cloNIDine, 0.1 mg 1 tabs, Oral, BID, # 60 tabs, 0 Refill(s), Pharmacy: [facility] #[id number], 1 tabs Oral BID Office Visit Level 4 Est 08591 Orders: [employer] Equipment Rx, DME Item DuoDerm extra thin CGF dressing. Size 4" x 4" diag - L89.90, See Instructions, # 1 boxes, 0 Refill(s), Pharmacy: [facility] #[id number], DuoDerm extra thin CGF dressing. Size 4" x 4"; diag - L89.90, Supply
--- NOTE | 2017-03-24 13:25 | XRay Report ---
EXAM: XR chest 2V COMPARISON: 08/02/2013. 04/26/2011. 04/18/2011. HISTORY: dyspnea . Fatigue. Cough with bloody sputum. Shortness of air for a few weeks. FINDINGS: The heart is enlarged. The bibasilar is mildly prominent. The left lung is relatively clear. There is obscuration of the right hemidiaphragm and blunting of the right costophrenic angle and had an opacity at the right mid and lower lung. There is no evidence for a pneumothorax. Degenerative changes of the right shoulder is noted. IMPRESSION: 1. Cardiomegaly. 2. Interval development of a moderate-sized right pleural effusion and right mid and lower lung atelectasis or consolidation. Clinical correlation is suggested. LOCATION OF DICTATION: INC .
[2017-03-24] MEDS ORDERED: FUROSEMIDE 40 MG/4 ML INJECTION IVP ONE (14:36)
--- NOTE | 2017-03-24 15:30 | History & Physical Report ---
History of Present Illness Date: 03/24/17 Chief complaint: difficulty breathing HPI: Juan De Leon is a 77-year-old male who lives at home with his with medical history significant for ischemic cardiomyopathy, coronary artery disease, paroxysmal atrial fibrillation (not anticoagulated due to history of traumatic ICH), chronic kidney disease, COPD. At baseline, he is a walker to ambulate. He sleeps in a hospital bed, and lately he has been unable to lay supine. He wears MESERET hose on a regular basis. He does not use home oxygen. Over the last 3 weeks he's been getting progressively short of breath, to the point where he has difficulty breathing even at rest. While lower extremity swelling from his knees down has improved, his has noticed increased swelling to his thighs and pelvis area. He is coughing up phlegm with blood mixed in with it. He describes penile swelling as well. He also has been complaining of lower abdominal pain and his appetite has been meniscal. He denies nausea or vomiting , dysuria or hematuria. He also has had a rash to his groin and lower abdomen and his has been applying vaginal cream but it's persisted. He has also developed ulcerations to both great toes, and his was planning on taking him to the wound care center. At baseline, both of his feet have a mottled appearance, but he denies any numbness or tingling. He states that both legs and very weak, especially his right one, and he fell a few days ago because his right leg simply gave out. His denies seeing any neurologic symptoms or strokelike symptoms. He denies fevers or chills, sinus congestion or drainage, sore throat or dysphagia. He denies dizziness, just feels very weak and has no energy. As abdominal pain and poor appetite. Has resulted in him not taking any of his home medications except for Lasix for the last 3 days. He has had some chest pain, but he states it has been higher up and not consistent with heart pain, which he is familiar with. His son and [id number] have been helping him at home, and they have noticed some mild confusion. After 3 days of requiring significant assistance to stand up, combined with hemoptysis and significant shortness of breath, he finally agreed to medical examination. He was taken to the emergency department on 03/24/17. His actually states that labs were drawn yesterday with a BMP of 39,000, and creatinine of 1.8. Baseline creatinine is about 1.4. In the ED, his BUN is 45 and creatinine was 2.0. Total bilirubin was 2.0, AST was 309, ALT 89, alkaline phosphatase 148. BMP was 49, 600. Troponin was 0.040. EKG showed sinus rhythm with an intraventricular conduction delay, left axis, no acute ST segment changes. Chest x-ray revealed moderate sized right pleural effusion and right lung atelectasis or consolidation. Also, cardiomegaly. He was requiring 6 L of oxygen to maintain saturations. He was given Lasix 40 mg IV for diuresis. Nursing staff attempted a Lassiter catheter but were unsuccessful secondary to swelling. Dr. King with the hospitalist service was contacted and the patient was admitted to inpatient status. Length of stay is expected to exceed 2 overnights, to address cardiorespiratory status and wound concerns. Review of Systems All systems PM: 10-point ROS was reviewed, no additional remarkable complaints except - Constitutional Constitutional: Present: as per HPI - EENMT Eyes: Absent: change in vision Balance: Present: as per HPI Nose: Present: as per HPI Mouth/Throat: Present: as per HPI - Cardiovascular Cardiovascular: Present: as per HPI Vascular: Present: see HPI - Respiratory Respiratory: Present: as per HPI - Gastrointestinal Gastrointestinal: Present: as per HPI - Genitourinary Genitourinary: Present: as per HPI - Musculoskeletal Musculoskeletal: Present: as per HPI - Integumentary/Breasts Integumentary: Present: as per HPI - Neurological Neurological: Present: as per HPI - Psychiatric Psychiatric: Present: as per HPI - Endocrine Endocrine: Absent: flushing, palpitations - Hematologic/Lymphatic Hematologic/Lymphatic: Absent: easy bleeding - Allergic/Immunologic Allergic/Immunologic: Absent: seasonal rhinorrhea Past Medical History Ischemic cardiomyopathy, last known ejection fraction of 25-30% in 2013 Coronary artery disease. Atrial fibrillation, paroxysmal. COPD Venous hypertension. Diffuse osteoarthritis. Gout Surgical History: Debridement of left tibial anterior ulcer in May 2015. CABG [address] Breanna Meng. Cardiac catheterization in July 2013. Bilateral craniotomy with epidural evacuation in July 2008. Multiple angioplasties. appendectomy. arthroscopy of knee. Wrist surgery Family History Updates: Father at age 64 of his third heart attack. His mother at age of 91 of old age and Alzheimer's. González is one of 9 siblings. 4 are still alive. Several of them have had heart disease, cancer and diabetes. A number of them have also suffered from traumatic brain bleeds, but they have all recovered from this injury. - Social History Smoking status: Former smoker (used to smoke 3 packs per day for 30 years, quit in 1991) Packs per day: 3 Packs-years: 90 Substance use type: does not use Alcohol intake frequency: does not drink (last budweiser was in 2008) Housing: house Household members: spouse Current occupational status: retired Previous occupational history: [employer] Social history: PCP - Dr. Samayoa CV - Dr. Long Medications Home Medications Medication Instructions Recorded Confirmed Type Allopurinol [Zyloprim] 400 mg PO DAILY 03/24/17 03/24/17 History Amiodarone [Pacerone] 200 mg PO DAILY 03/24/17 03/24/17 History Aspirin [Aspirin EC] 81 mg PO DAILY 03/24/17 03/24/17 History Atorvastatin [Lipitor] 40 mg PO HS 03/24/17 03/24/17 History Carvedilol [Carvedilol] 6.25 mg PO BID 03/24/17 03/24/17 History Docusate Sodium [Colace] 100 mg PO BID 03/24/17 03/24/17 History Furosemide [Lasix] 40 mg PO BID 03/24/17 03/24/17 History Lisinopril [Prinivil] 2.5 mg PO HS 03/24/17 03/24/17 History Nitroglycerin 0.4 mg SL Q5MIN3 PRN 03/24/17 03/24/17 History Omeprazole [Prilosec] 20 mg PO DAILY 03/24/17 03/24/17 History Potassium Chloride [Klor-Con M20] 20 meq PO BID 03/24/17 03/24/17 History Allergies Allergy/AdvReac Type Severity Reaction Status Date / Time captopril Allergy Unknown Verified 03/24/17 12:58 Penicillins Allergy Unknown Verified 03/24/17 12:58 Exam Vital Signs: Temperature 96.8 F 03/24/17 12:25 Pulse Rate 75 03/24/17 14:30 Respiratory Rate 24 03/24/17 14:30 Blood Pressure 117/77 03/24/17 14:30 Pulse Oximetry 94 03/24/17 14:30 Telemetry Rhythm: Sinus Rhythm Height/Weight/BMI: Height 1.83 m Weight 113 kg - Constitutional Present: mild distress, well nourished, well developed - Routine HEENT Exam Eye: Present: EOMI, PERRL. Absent: conjunctival icterus, scleral injection ENT: Present: mucous membranes dry, oropharynx clear. Absent: dentition normal (dentition is in very poor repair with multiple missing teeth) Comments: Scalp has scars on it from previous craniotomy - Routine Neck Exam Present: supple. Absent: lymphadenopathy - Routine Respiratory Exam Present: diminished air movement (left) Comments: Markedly reduced air movement to the right mid and lower lung - Routine Cardiovascular Exam Present: RRR, S1, S2 - Routine Abdominal Exam Present: normoactive bowel sounds, non tender, distended (mild) Comments: Pitting edema is noted to his lower abdomen, lower back and bilateral hip - Routine Exam Perineal: Present: erythema (malodorous-like rash to groin) - Routine Extremities Exam Present: edema (2-3+ pitting edema in bilateral thighs), extremity cold to touch (both feet were cold to touch). Absent: pulses intact (I was unable to readily palpate DP or PT pulses bilaterally), normal capillary refill (Refill was 5 seconds to both great toes) - Routine Skin Exam Present: wounds (necrotic ulcers to distal aspects of both great toes. There is also a pressure ulcer to the base of the first metatarsal bilaterally. There are smaller ulcerations noted on other toes as well.) - Routine Neurological Exam Present: alert, oriented X3, CN II-XII intact, moving all extremities, vision grossly intact, hearing grossly intact, normal speech. Absent: motor deficit ( he was unable to lift his arms to shoulder height because of "bad shoulders." Upper extremity and lower extremity strength otherwise was equal bilaterally.), altered mental status, facial asymmetry - Routine Psychiatric Exam Present: normal affect, normal thought process, cooperative Results - Labs CBC & Chem 7: 03/24/17 12:53 03/24/17 12:53 Assessment and Plan (1) Congestive heart failure Current visit: Yes Status: Acute (2) Pulmonary infarction Current visit: Yes Status: Acute (3) Systolic congestive heart failure, NYHA class 4 Current visit: Yes Status: Acute (4) Medical non-compliance Current visit: Yes Status: Acute Assessment and Plan: Admitting diagnoses Acute systolic congestive heart failure exacerbation. Hemoptysis and hypoxia. Acute kidney injury with creatinine of 2.0 on admission Hyperbilirubinemia and transaminitis Bilateral great toe ulcerations. Inguinal candidiasis Chronic comorbidities Ischemic cardiomyopathy, last known ejection fraction of 25-30% in 2013 Coronary artery disease. Atrial fibrillation, paroxysmal. COPD Venous hypertension. Diffuse osteoarthritis. Gout Plan Admit, inpatient status under the hospitalist service. Regarding heart failure exacerbation, will consult Dr. Long. Monitor on telemetry, trend troponin. Lasix 40 mg IV was given in the ED, will monitor response to this. We may need to reattempt placing a Lassiter, which was unsuccessful in the emergency department. Suspect elevated LFTs are a result of liver congestion secondary to heart failure. Echo has been ordered. VIOLET - will monitor response to diuresis. Consider renal sono if no improvement. Consult Dr. Rivera for bilateral toe ulcers. May need arterial dopplers and/ or intervention. Start nystatin powder for inguinal candidiasis. Check D-dimer d/t hemoptysis - though suspect his dyspnea/hypoxia are from CHF rather than pulmonary emboli. However, CXR was abnormal with a dilated appearing aorta, though CXR is malrotated. Check TSH and A1c. Discussed with Dr. King, Dr. Long and with Ronnie Stroud APRN. Code status: DNR. 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 echocardiogram has been performed and shows extensive clotting through the right atrium. Dr. Long and I have had a 20 minute long conversation with both patient and his . We explained extensively the very high risk of mortality that the patient is facing and offered the patient the opportunity to treat here in our ICU versus sending to [place] for the potential of further invasive procedures which may be lifesaving in the event that the atrial clots further emboli's into the pulmonary system. The patient made reasonable argument in front of his for not going to [place] and restated his position in with his DNR status. Patient is being transferred to the intensive care unit with a high-dose bolus heparin drip. He has knowingly declined transfer for potential cardiac interventional radiology procedures at this time. Critical care time performed 40 minutes without procedures DVT Prophylaxis: SCD's Resuscitation Status: Do Not Resuscitate - Physician Narrative Narrative: Date: 03/24/17 Time: 1522 Hospital Course Summary Disclaimer: The visit summary below is not to be considered part of the above Progress Note. Hospital Course: 03/24/17 Admit, inpatient status under the hospitalist service. Regarding heart failure exacerbation, will consult Dr. Long. Monitor on telemetry, trend troponin. Lasix 40 mg IV was given in the ED, will monitor response to this. We may need to reattempt placing a Lassiter, which was unsuccessful in the emergency department. Suspect elevated LFTs are a result of liver congestion secondary to heart failure. Echo has been ordered. VIOLET - will monitor response to diuresis. Consider renal sono if no improvement. Consult Dr. Rivera for bilateral toe ulcers. May need arterial dopplers and/ or intervention. Start nystatin powder for inguinal candidiasis. Check D-dimer d/t hemoptysis - though suspect his dyspnea/hypoxia are from CHF rather than pulmonary emboli. However, CXR was abnormal with a dilated appearing aorta, though CXR is malrotated. Check TSH and A1c. Discussed with Dr. King, Dr. Long and with Ronnie Stroud APRN. Code status: DNR.
[2017-03-24] MEDS: SALINE FLUSH 10ml SYRINGE IVF PRN ×2 (15:31→18:53)
[2017-03-24 16:10] VITALS: BMI 33.2
--- NOTE | 2017-03-24 18:15 | General Surgery Consult Note ---
Consult date: 03/24/17 Attending Physician: Javier King MD Reason for consult: wound care [facility] Patient Stated Medical History Congestive Heart Failure Yes Hypertension Yes Myocardial Infarction Yes: X3 Other Musculoskeletal Yes Cellulitis Yes Surgical History: Debridement of left tibial anterior ulcer in May 2015. CABG 5 in July [address] Breanna Meng. Cardiac catheterization in July 2013. Bilateral craniotomy with epidural evacuation in July 2008. Multiple angioplasties. appendectomy. arthroscopy of knee. Wrist surgery Family History: Father at age 64 of his third heart attack. His mother at age of 91 of old age and Alzheimer's. González is one of 9 siblings. 4 are still alive. Several of them have had heart disease, cancer and diabetes. A number of them have also suffered from traumatic brain bleeds, but they have all recovered from this injury. - Social History Smoking status: Former smoker (cheyanne 1991) Alcohol intake frequency: does not drink Housing: house Household members: spouse Previous occupational history: [employer] Home Medications Medication Instructions Recorded Confirmed Type Allopurinol [Zyloprim] 400 mg PO DAILY 03/24/17 03/24/17 History Amiodarone [Pacerone] 200 mg PO DAILY 03/24/17 03/24/17 History Aspirin [Aspirin EC] 81 mg PO DAILY 03/24/17 03/24/17 History Atorvastatin [Lipitor] 40 mg PO HS 03/24/17 03/24/17 History Carvedilol [Carvedilol] 6.25 mg PO BID 03/24/17 03/24/17 History Docusate Sodium [Colace] 100 mg PO BID 03/24/17 03/24/17 History Furosemide [Lasix] 40 mg PO BID 03/24/17 03/24/17 History Lisinopril [Prinivil] 2.5 mg PO HS 03/24/17 03/24/17 History Nitroglycerin 0.4 mg SL Q5MIN3 PRN 03/24/17 03/24/17 History Omeprazole [Prilosec] 20 mg PO DAILY 03/24/17 03/24/17 History Potassium Chloride [Klor-Con M20] 20 meq PO BID 03/24/17 03/24/17 History Allergies Allergy/AdvReac Type Severity Reaction Status Date / Time captopril Allergy Unknown Verified 03/24/17 12:58 Penicillins Allergy Unknown Verified 03/24/17 12:58 Review of Systems 10-point ROS: negative except for HPI and the following: - Cardiovascular Cardiovascular: Present: palpitations, edema/swelling - Respiratory Respiratory: Present: difficulty breathing - Gastrointestinal Gastrointestinal: Present: other (lower abd pain and poor appetite) - Musculoskeletal Musculoskeletal: Present: back pain, joint pain - Neurological Neurological: Present: muscle weakness - Vital Signs Last Vital Signs Temp 96.8 F 03/24/17 12:25 Pulse 70 03/24/17 16:38 Resp 24 03/24/17 16:05 BP 111/73 03/24/17 16:05 Pulse Ox 95 03/24/17 16:14 - Laboratory Result Diagrams: 03/24/17 12:53 03/24/17 12:53 Hospital Course Summary Disclaimer: The visit summary below is not to be considered part of the above Progress Note. Hospital Course: 03/24/17 Admit, inpatient status under the hospitalist service. Regarding heart failure exacerbation, will consult Dr. Long. Monitor on telemetry, trend troponin. Lasix 40 mg IV was given in the ED, will monitor response to this. We may need to reattempt placing a Lassiter, which was unsuccessful in the emergency department. Suspect elevated LFTs are a result of liver congestion secondary to heart failure. Echo has been ordered. VIOLET - will monitor response to diuresis. Consider renal sono if no improvement. Consult Dr. Rivera for bilateral toe ulcers. May need arterial dopplers and/ or intervention. Start nystatin powder for inguinal candidiasis. Check D-dimer d/t hemoptysis - though suspect his dyspnea/hypoxia are from CHF rather than pulmonary emboli. However, CXR was abnormal with a dilated appearing aorta, though CXR is malrotated. Check TSH and A1c. Discussed with Dr. King, Dr. Long and with Ronnie Stroud APRN. Code status: DNR.
[2017-03-24] MEDS ORDERED: HEPARIN - PHARMACY CONSULT MC ONE (18:31)
[2017-03-24] MEDS ORDERED: HEPARIN 1,000unit/ml INJECTION 10ml IV ONE (18:31)
[2017-03-24] MEDS: HEPARIN DRIP 20,000 UNIT/500 ML BAG IV SCH (19:08)
--- NOTE | 2017-03-24 19:31 | Pharmacy Consult ---
Pharmacy Consult-Heparin - Laboratory Information Heparin Plt Count 137 T/MM3 (130-400) 03/24/17 12:53 HEPARIN THERAPY: DAY 1 WEIGHT BASED DOSING: Bolus = 7,800 units IV Drip = increased to 1400 units/hr (35 ml/hr) Baseline PTT = NA Will order for tomorrow morning. Platelet baseline WNL's. Thank you
[2017-03-24] MEDS ORDERED: NITROGLYCERIN 0.4 MG SUBLINGUAL TABLET SL PRN (19:57)
[2017-03-24] MEDS: DOCUSATE SODIUM 100 MG CAPSULE PO SCH (20:52)
[2017-03-24] MEDS ORDERED: LISINOPRIL 2.5 MG TABLET PO SCH (21:00)
[2017-03-24] MEDS ORDERED: FUROSEMIDE 40 MG TABLET PO SCH (21:00)
[2017-03-24] MEDS ORDERED: ATORVASTATIN 40 MG TABLET PO SCH (21:00)
[2017-03-24] MEDS ORDERED: CARVEDILOL 6.25 MG TABLET PO SCH (21:00)
[2017-03-24] MEDS ORDERED: LORazepam 1 MG TABLET PO SCH (22:13)
--- NOTE | 2017-03-24 22:44 | Cardiology Consult Note ---
History of Present Illness Consult reason: congestive heart failure, known to you History of present illness: Mr. Boucher is a complex 77-year-old male well-known to me A history of noncompliance last time seen by me was in 2013 shortly following his CABG. He has chronic complex cardiovascular disease and multiple comorbidities see below. He is a poor historian. [facility] history of worsening shortness of breath with any activity and cough productive of a blood-tinged phlegm. His been expressing some orthopnea and he does wear his MESERET hose regularly. He does have some dull pain points at the upper abdomen crossed into the low substernal chest area on and off for some time, worse with swallowing and breathing. He feels is different from his previous angina. I was asked to see patient by Valeri Adams APRN and case was reviewed and discussed in person around 3:50 PM. Then I reviewed the echocardiogram discussed the results immediately with Dr. Urias hospitalist and we both went and discussed the findings and the plan of care with the patient and his . See Dr. Urias' s note as well as my assessment and plan currently. He shouldn't was started on IV heparin bolus and drip and transferred to ICU. There were offered transfer to tertiary care facility in [place] where cardiothoracic surgery and interventional radiology consultation obtained patient declined, understanding the potential for fatal pulmonary embolus, should atrial clot not respond and embolize. Initial treatment modalities included IV Lasix 40 mg given emergency department with poor response, unable to place a Lassiter catheter due to penile swelling. Other symptoms include swelling in the upper thighs no fever chills runny nose or sore throat no TIA or strokelike symptoms. No sharp chest pain with inspiration or jemma blood hemoptysis. Positive for ulcers on his feet seen by Dr. Richie Rivera for wound management. Cold feet with suspected peripheral arterial disease. Patient's baseline mobility is quite limited using a walker to ambulate at last couple days his legs been so weak he couldn't get up. Appetite has been poor with anorexia and has lost 10-15 pounds. He is requiring oxygen supplement to 4 L/m he is not on home O2 normally. No hematochezia or melena hematemesis or coffee-ground emesis some vague discomfort in the upper abdomen denies nausea or vomiting. Admission data showed a 12-lead EKG normal sinus rhythm and intraventricular conduction delay no acute ST depression or elevation of ischemia chest x-ray shows cardiomegaly aorta ectasia on a rotated film, aneurysm could not be excluded, a unilateral right pleural effusion and minimal if any pulmonic congestion. BNP 39,000 troponin normal. The creatinine 45 over 2.0 baseline 1.4 today was 1.8. Liver enzymes elevated AST 309 ALT 89 CBC unremarkable. Echocardiography see report. Telemetry shows normal sinus rhythm. Review of Systems All systems PM: 10-point ROS was reviewed, no additional remarkable complaints except - Constitutional Constitutional: Present: anorexia, weakness (generalized), weight loss. Absent : chills - Cardiovascular Cardiovascular: Absent: palpitations, syncope PFSH Patient Stated Medical History Paroxysmal atrial fibrillation 2013 Traumatic subdural hematoma in or about 2006 Heavy alcohol intake Congestive Heart Failure Yes Hypertension Yes Myocardial Infarction Yes: X3 including nonSTEMI in 2006 and in 2013 Other Musculoskeletal Yes Cellulitis Yes Surgical History: Debridement of left tibial anterior ulcer in May 2015. CABG [address] Breanna Meng. Cardiac catheterization in July 2013. Bilateral craniotomy with epidural evacuation in July 2008. Multiple angioplasties. appendectomy. arthroscopy of knee. Wrist surgery - Social History Smoking status: Former smoker (used to smoke 3 packs per day for 30 years, quit in 1991) Alcohol intake frequency: does not drink Current occupational status: retired Current residence: Apartment/Private Home Medications Home Medications Medication Instructions Recorded Confirmed Type Allopurinol [Zyloprim] 400 mg PO DAILY 03/24/17 03/24/17 History Amiodarone [Pacerone] 200 mg PO DAILY 03/24/17 03/24/17 History Aspirin [Aspirin EC] 81 mg PO DAILY 03/24/17 03/24/17 History Atorvastatin [Lipitor] 40 mg PO HS 03/24/17 03/24/17 History Carvedilol [Carvedilol] 6.25 mg PO BID 03/24/17 03/24/17 History Docusate Sodium [Colace] 100 mg PO BID 03/24/17 03/24/17 History Furosemide [Lasix] 40 mg PO BID 03/24/17 03/24/17 History Lisinopril [Prinivil] 2.5 mg PO HS 03/24/17 03/24/17 History Nitroglycerin 0.4 mg SL Q5MIN3 PRN 03/24/17 03/24/17 History Omeprazole [Prilosec] 20 mg PO DAILY 03/24/17 03/24/17 History Potassium Chloride [Klor-Con M20] 20 meq PO BID 03/24/17 03/24/17 History Allergies Allergy/AdvReac Type Severity Reaction Status Date / Time captopril Allergy Unknown Verified 03/24/17 12:58 Penicillins Allergy Unknown Verified 03/24/17 12:58 Exam Vital signs: Temperature 97.1 F 03/24/17 20:35 Pulse Rate 74 03/24/17 22:15 Respiratory Rate 25 H 03/24/17 22:15 Blood Pressure 122/76 03/24/17 22:15 Pulse Oximetry 96 03/24/17 22:15 - Constitutional mild distress, obese, other (chronically ill) - Routine HEENT Exam Head: Present: normocephalic Eye: Present: EOMI, PERRL ENT: Present: mucous membranes moist - Routine Neck Exam Present: JVD, normal carotid upstroke. Absent: carotid bruit, lymphadenopathy, thyromegaly - Routine Respiratory Exam Present: decreased breath sounds (right lung base with dullness to percussion. Positive left pleuritic friction rub), diminished air movement - Routine Cardiovascular Exam Present: RRR, S1 (distant), S2 (distant), no murmur, JVD. Absent: bradycardia, tachycardia - Routine Abdominal Exam Present: soft, normoactive bowel sounds, non distended, non tender - Routine Exam Penile: Present: swelling - Routine Extremities Exam Present: no edema (no significant edema at the ankles, skin shows hyperpigmentation and medial aspects lower legs), extremity cold to touch ( bilateral feet). Absent: cyanosis, clubbing, pulses intact (decreased pedal pulses bilaterally), normal capillary refill, calf tenderness - Routine Skin Exam Present: wounds, gangrene (the toes). Absent: intact - Routine Neurological Exam Present: alert, oriented X3, CN II-XII intact, moving all extremities, vision grossly intact, hearing grossly intact, normal speech. Absent: motor deficit, hemineglect, facial asymmetry - Routine Psychiatric Exam Present: normal affect, normal thought process, cooperative, good insight, good judgment. Absent: depressed Results 03/24/17 12:53 03/24/17 12:53 Cardiac Enzymes 03/24/17 Range/Units 18:52 Troponin I 0.095 D (0-0.12) ng/ml Intake and Output 03/24/17 03/24/17 03/24/17 06:59 14:59 22:59 Intake Total 178.333 / 178.333 Output Total 45 / 45 Balance 133.333 / 133.333 Intake: IV 58.333 / 58.333 Heparin Drip 20,000 unit In 500 58.333 / 58.333 ml @ 35 mls/hr IV .[id number] [facility] Rx#:[id number] Oral 120 / 120 Output: Urine 20 / 20 Urine Amount (Catheter) Other: Urine Appearance Clear Urine Color Dark Yellow Weight 111.1 kg Patient Weight 03/25/17 06:59 Weight 111.1 kg - Imaging and Cardiology Echo: report reviewed, other (July 2013 ischemic cardiopathy depressed ejection fraction of atrial enlargement significant valvular dysfunction) Cardiac cath: report reviewed, other (July 2013 90% mid LAD stenosis 75% first diagonal stenosis and 60% stenosis proximal LCx 70% stenosis obtuse marginal branch 100% stenosis RCA mid level 100% stenosis collaterals fail to office marginal branches distal RCA severe LV systolic dysfunction 2530 percent slip to CABG 5 Dr. Karla Meng his heart catheter was in setting of non-STEMI) - EKG Interpretation EKG: sinus rhythm, no acute changes Assessment and Plan - Assessment and Plan Congestive heart failure predominantly right-sided Right atrial clots, likely emboli in transit Suspected pulmonary emboli with possible pulmonary infarction and the unilateral pleural effusion Severe ischemic cardiopathy Pulmonary hypertension Coronary artery disease status post CABG Renal insufficiency acute on chronic Elevated liver enzymes likely from CHF Peripheral artery disease with feet ulcers and toes ' gangrene COPD Remote history of traumatic intracranial bleed/subdural hematoma DO NOT RESUSCITATE order Discussion as in history of present illness and Dr. rUias's note, IV heparin started. Risks and benefits discussed in detail and the in agreement Patient offered transfer to tertiary care facility for CT surgery and interventional radiology consultation he declined. He and his understand the possibility of fatal pulmonary embolus Close monitoring of liver enzymes Elected to keep amiodarone on board which has maintained sinus rhythm and help maintaining hemodynamic stability Hold atorvastatin until liver enzymes trend down Hold lisinopril and potassium due to poor urine output This time may keep by mouth Lasix at his home dose and closely monitor renal function Repeat chest x-ray Consider VQ lung scan in the morning Bilateral lower extremity venous Doppler Long-term prognosis unfortunately appears quite poor due to multiple severe comorbidities Short-term prognosis may be poor due to serious acute medical illness Hospital Course Summary Disclaimer: The visit summary below is not to be considered part of the above Progress Note. Hospital Course: 03/24/17 Admit, inpatient status under the hospitalist service. Regarding heart failure exacerbation, will consult Dr. Long. Monitor on telemetry, trend troponin. Lasix 40 mg IV was given in the ED, will monitor response to this. We may need to reattempt placing a Lassiter, which was unsuccessful in the emergency department. Suspect elevated LFTs are a result of liver congestion secondary to heart failure. Echo has been ordered. VIOLET - will monitor response to diuresis. Consider renal sono if no improvement. Consult Dr. Rivera for bilateral toe ulcers. May need arterial dopplers and/ or intervention. Start nystatin powder for inguinal candidiasis. Check D-dimer d/t hemoptysis - though suspect his dyspnea/hypoxia are from CHF rather than pulmonary emboli. However, CXR was abnormal with a dilated appearing aorta, though CXR is malrotated. Check TSH and A1c. Discussed with Dr. King, Dr. Long and with Ronnie Stroud APRN. Code status: DNR.
[2017-03-25] MEDS ORDERED: HYDROCODONE/APAP 5mg/325mg TABLET PO PRN (05:19)
[2017-03-25] MEDS ORDERED: OMEPRAZOLE 20 MG CAPSULE PO SCH (06:30)
--- NOTE | 2017-03-25 07:46 | Echocardiogram ---
DATE OF SERVICE 03/24/2017 Note: The echocardiogram was reviewed about 6: 22 p.m. and results immediately shared with hospitalist service, Dr. Javier King, regarding further management. INDICATION Congestive heart failure. TECHNICAL QUALITY Technically good 2-D, M-mode, Doppler echocardiographic images were submitted for interpretation. FINDINGS 1. CARDIAC CHAMBERS. Left atrium is borderline enlarged, measures 4.0 cm. Aortic root diameter measurement of 4.0 cm is mildly increased. These measures are based on M-mode. Visually, the left atrium and aortic root appear to be normal in size. Left ventricle internal diameter measures 5.3 cm. Right ventricle is moderately enlarged, severely hypokinetic, diameter measured 4.8 cm. Right atrium appears enlarged. 2. LEFT VENTRICLE. Analysis reveals concentric LVH. Posterior wall measures 13 mm. Septal wall measures 15 mm. Wall motion analysis is abnormal. Septal dyskinesis is present. Severe global hypokinesia is present. Severe LV systolic dysfunction is present. Ejection fraction is estimated about 15-20%. Echogenic area in the septum into the anteroseptum with thinning is suggestive of a scar. The apex appears akinetic. It is not well seen and one cannot exclude a thrombus. The best moving segments are seen in the lateral wall. Ejection fraction is estimated about 25%. 3. VALVES. Aortic valve exhibits mild sclerotic changes. Valve opening is preserved. Mitral valve exhibits sclerotic changes. Valve opening is preserved. Tricuspid valve exhibits mild sclerotic change with preserved opening. Pulmonic valve structure and motion appear normal. Normal valve excursion. 4. DOPPLER. Shows mild pulmonic insufficiency, moderate tricuspid insufficiency with estimated systolic PA pressure of 53 mmHg per Bernoulli equation. Trace aortic regurgitation. Reduced flow velocities throughout were noted consistent with poor cardiac output. 5. Multiple echogenic structures appear longitudinal and highly mobile, swirling in the right atrium suggestive of thrombi are noted. 6. Diastolic function assessment shows E/A ratio of 1.6, E/E' ratio of 9.2. 7. No evidence of pericardial effusion. IMPRESSION 1. Right heart enlargement. 2. Severe ischemic cardiomyopathy, ejection fraction is estimated about 25%. 3. Severe RV hypokinesis. 4. Moderate pulmonary hypertension. 5. Mildly elevated central venous pressure. 6. Echogenic masses, highly mobile, in the right atrium, I measured at least 6 cm in length. This most likely represents a large thrombus/embolus. 7. Moderate tricuspid regurgitation. 8. Sclerotic aortic and mitral valve. MTDD
--- NOTE | 2017-03-25 08:01 | Pharmacy Consult ---
Pharmacy Consult-Heparin - Laboratory Information Heparin Plt Count 103 T/MM3 (130-400) L 03/25/17 02:39 APTT 133.9 SEC (24-36) H* 03/25/17 02:39 HEPARIN THERAPY: Heparin Drip held x 1 hr. Then restarted at 1100 units/hr (27.5ml/hr) Repeat PTT today at 1200. Slight decrease in Platelet count. Will watch closely. Thank you
--- NOTE | 2017-03-25 08:06 | XRay Report ---
Indication: CHF Procedure: XR chest 1V: Encounter: Subsequent Comparison: 03/24/2017 Technique: A single portable AP chest radiograph was obtained. Findings: Lungs and airways: Further decreased right lung volume. Increased right pulmonary airspace consolidation. Stable pulmonary vasculature. Pleura: Increased moderate to large right pleural effusion. No pneumothorax. Heart and mediastinum: The cardiomediastinal silhouette and great vessels appear unchanged. Osseous structures and soft tissues: No acute osseous abnormality is seen. Degenerative arthrosis of the shoulders Impression: Further increased moderate to large right pleural effusion with associated increased right pulmonary relaxation atelectasis. .
[2017-03-25] MEDS ORDERED: AMIODARONE 200 MG TABLET PO SCH (09:00)
[2017-03-25] MEDS ORDERED: ALLOPURINOL 100 MG TABLET PO SCH (09:00)
[2017-03-25] MEDS ORDERED: ASPIRIN *EC* 81 MG TABLET PO SCH (09:00)
--- NOTE | 2017-03-25 09:02 | Ultrasound Report ---
EXAM: US venous doppler LE DATE: 03/25/2017 11:42 PM ENCOUNTER: Initial INDICATION: possible DVT COMPARISON: None available. TECHNIQUE: Beyer scale, Doppler, and color duplex examination of the bilateral lower extremity venous system was performed. FINDINGS: Nonocclusive deep venous thrombosis identified within the distal right popliteal vein. All remaining more proximal visualized segments of the right lower extremity deep venous system including the common femoral and superficial femoral veins are patent with good compressibility and augmentation. The right posterior tibial vein within the calf was patent. Superficial thrombophlebitis noted within the left greater saphenous vein. All visualized segments of the left lower extremity deep venous system including the common femoral, superficial femoral, popliteal, and posterior tibial veins are patent. IMPRESSION: 1. Nonocclusive deep venous thrombosis within the distal right popliteal vein. 2. Superficial thrombophlebitis within the left greater saphenous vein. .
[2017-03-25] MEDS: CARVEDILOL 6.25 MG TABLET PO SCH ×2 (09:05→16:45)
[2017-03-25] MEDS: DOCUSATE SODIUM 100 MG CAPSULE PO SCH ×2 (09:06→22:37)
[2017-03-25] MEDS: FUROSEMIDE 40 MG TABLET PO SCH ×2 (09:06→16:45)
--- NOTE | 2017-03-25 09:14 | Ultrasound Report ---
Indication: PAD Procedure: US arterial duplex LE BI: Encounter: Initial Comparison: None Technique: Grayscale, color Doppler, and spectral analysis sonographic imaging of the bilateral lower extremity arterial systems was performed. Findings: Scattered areas of both soft and calcified atherosclerotic plaque noted throughout the bilateral lower extremities. There is decreased flow within the right popliteal artery and into the calf with trickle flow in the distal dorsalis pedis artery. Decreased flow against noted throughout the left lower leg with biphasic and monophasic waveforms. Retrograde flow noted within the left dorsalis pedis artery distally Peak systolic velocities (in centimeters per second) are as detailed below: Right lower extremity: Common femoral: 61 Proximal superficial femoral: 68.4 Mid superficial femoral: 59.3 Distal superficial femoral: 67.9 Popliteal: 16.3 Proximal Anterior tibial: 17.7 Proximal posterior tibial: 26.2 Distal posterior tibial: 21.5 Dorsalis pedis: 4.91 Left lower extremity: Common femoral: 66.7 Proximal superficial femoral: 31.4 Mid superficial femoral: 44.9 Distal superficial femoral: 57.1 Popliteal: 22.4 Proximal Anterior tibial: 25.7 Proximal posterior tibial: 19.2 Distal posterior tibial: 27.6 Dorsalis pedis: 43 Impression: Bilateral lower extremity arterial atherosclerotic disease with decreased flow throughout the left lower extremity and decreased flow within the right calf with areas of biphasic and monophasic waveforms consistent with atherosclerotic narrowing. .
[2017-03-25] MEDS ORDERED: LIDOCAINE 2% JELLY (Urojet) 20ml MM ONE (11:00)
--- NOTE | 2017-03-25 11:12 | Consultation ---
DATE OF CONSULTATION 03/24/2017 FINDINGS Mr. De Leon is a 77-year-old gentleman whom I was asked to see as a result of wounds involving his lower extremities. Apparently I have seen the patient in the past in our wound care facility as a result of prior wounds. The patient was accompanied by his this evening. Apparently Mr. De Leon has become increasingly more short of breath. The patient states that he has become so short of breath that it is even difficult for him to eat. He has, in the recent past, been able to ambulate around the house to get to the "bathroom or bed." Over the last day or so he has been so short of breath he has been unable walk. His informs me that about a khxkd-isw-r-half ago they began to notice some wounds involving the tips of his great toes. The patient is not diabetic. The patient does have a significant cardiac history as well as a prior history for intracranial hemorrhage. The patient was admitted to our facility for further care as a result of his exacerbation of congestive heart failure/ shortness of breath. PAST MEDICAL HISTORY Performed by my nurse practitioner, Ronnie Stroud. PAST SURGICAL HISTORY Performed by my nurse practitioner, Ronnie Stroud. MEDICATIONS Performed by my nurse practitioner, Ronnie Stroud. ALLERGIES Performed by my nurse practitioner, Ronnie Stroud. SOCIAL HISTORY Performed by my nurse practitioner, Ronnie Stroud. FAMILY HISTORY Performed by my nurse practitioner, Ronnie Stroud. REVIEW OF SYSTEMS Performed by my nurse practitioner, Ronnie Stroud. PHYSICAL EXAMINATION The patient is a 77-year-old elderly gentleman who appears older than his stated age. VITALS: Temperature 96.8, pulse 70, blood pressure 111/73, SaO2 95% on 4 liters per nasal cannula. HEENT: Normocephalic. Pupils are equal, round and reactive to light and accommodation. CHEST: Auscultation of chest reveals some diminished breath sounds. No rhonchi are noted. A few rales are appreciated. HEART: Irregularly irregular. I was unable to appreciate a murmur. ABDOMEN: Soft, nontender. No evidence of hepatosplenomegaly or other abnormal masses. EXTREMITIES: Attention was focused to his lower extremities. The patient does have two areas of necrosis involving the tips of his great toes. This area of dry gangrene/necrosis is on the order about a bfntkkywwk-jbf-w-half to perhaps 2 cm in greatest dimension. There is no surrounding erythema around this area of necrosis. No purulent drainage. Palpation of the feet revealed them to be cool in nature. I was unable to palpate any evidence for dorsalis pedis or posterior tibial pulse. The remaining toes are without evidence for necrosis. NEURO: Cranial nerves II-XII grossly intact. The patient is without focal motor or sensory deficits. LABORATORY/RADIOGRAPH EVALUATION The patient had a CBC upon admission that was unremarkable. A CMP was obtained and his CO2 was elevated at 33. Chloride was low at 96. Liver function tests were elevated with an AST of 309, ALT of 89 and alk phos 148. The patient's bilirubin was elevated at 2.1. This very well could be a result of hepatic congestion from his known cardiomyopathy/congestive heart failure. BNP was markedly elevated at 49,600. Influenza A and B are negative. ASSESSMENT 77-year-old gentleman with exacerbation of congestive heart failure. Patient with dry gangrene involving tips of great toes bilaterally. Most likely etiology is arterial insufficiency. Process could be embolic as well. PLAN Secondary to the fact that he does not have evidence for wet gangrene, I would simply paint his dry areas of necrosis on a daily basis with Betadine and cover with gauze. Would recommend he continue to wear foam booties to avoid pressure ulcerations. Will obtain arterial duplex tomorrow of his lower extremities to further assess his peripheral arterial status. Would not recommend debridement at this time. Will continue to follow along in the patient's care. AMADEO
[2017-03-25] MEDS: HEPARIN DRIP 20,000 UNIT/500 ML BAG IV SCH (12:40)
--- NOTE | 2017-03-25 12:42 | Pharmacy Consult ---
Pharmacy Consult-Heparin - Laboratory Information Heparin Plt Count 103 T/MM3 (130-400) L 03/25/17 02:39 APTT 93.0 SEC (24-36) H 03/25/17 12:00 - Consult Information HEPARIN CONSULT (Recurring): PTT = 93 SEC Will adjust Heparin Drip to 920 units/hr (23 ml/hr). Will recheck PTT AT 2000 and adjust regimen as needed. Thank you.
--- NOTE | 2017-03-25 14:45 | Progress Note ---
DATE: 03/25/2017 FINDINGS Mr. De Leon was seen earlier this morning on rounds in the ICU. He was resting upon my entering the room. Vitals: Temperature 97.3, pulse 59, respirations 23 , SaO2 98% on 4 liters per nasal cannula. HEENT: Normocephalic. Pupils are equal, round and reactive to light and accommodation. CHEST: Coarse breath sounds bilaterally. HEART: Irregularly irregular. No murmur auscultated. ABDOMEN: Soft, nontender. EXTREMITIES: Attention was focused to his feet. The dry eschar/gangrene regions involving the tip of his toes are stable. There is no surrounding erythema. LABORATORY/RADIOGRAPH EVALUATION Last evening when I was present during his echocardiogram, one could see an echogenic mass within the right atrium. This was felt to likely represent a large thrombus. The patient was subsequently transferred to the ICU and begun on a heparin drip. The patient has also undergone arterial duplex scan of his lower extremities. Arterial duplex scan did reveal significant peripheral arterial disease. PLAN The patient at this time is critically ill. I would not proceed with any further evaluation in regard to his lower extremities and wounds. If the patient would make marked improvement from his congestive heart failure standpoint, at that time one perhaps could proceed with intervention in regard to his peripheral arterial disease. Will continue to follow along intermittently during the patient's hospital course in regard to his wounds. At this time would recommend continuing with current dressing regimen as ordered. AMADEO
[2017-03-25] MEDS ORDERED: FALL RISK - PHARMACY CONSULT XX ONE (16:25)
--- NOTE | 2017-03-25 18:44 | Cardiology Progress Note ---
Subjective Interval history: Mr. De Leon has clearly taken a turn to the worse today. He is been sleeping all day long. Very hard to arouse. He received Ativan last night and narcosis morning. He is not making any urine. He is hypotensive today pressure as low as 60s and 70s intermittently when he goes to sleep when woke up earlier was up to 100 systolic according to his nurse. Respiratory status is about the same without any sudden change might suggest additional pulmonary emboli. Remains on 4 L oxygen nasal cannula . I&O's reviewed weight is up laboratory noted BUN/creatinine up platelets down a little. Venous Doppler showed nonocclusive DVT. He is on heparin drip. After the bedside and asking if he could be taken off heparin so that he doesn't get stuck 4 PTT is. They haven't made a decision about comfort care yet. They're contemplating. Made up their mind against hemodialysis and aggressive measures. Telemetry shows sinus rhythm and the mid upper 50s PVCs and PACs seen on occasions. Examined the patient multiple times today between 2 30 and 6:30 PM and discussed with the at the [facility] and his RN detail Exam Vital signs: Temperature 97.3 F 03/25/17 03:15 Pulse Rate 55 L 03/25/17 18:16 Respiratory Rate 27 H 03/25/17 18:16 Blood Pressure 74/50 03/25/17 14:00 Pulse Oximetry 100 03/25/17 18:16 - Constitutional moderate distress, obese, obtunded - Routine HEENT Exam Head: Present: normocephalic, atraumatic Eye: Present: PERRL ENT: Present: mucous membranes dry - Routine Neck Exam Present: JVD (mild), normal carotid upstroke. Absent: carotid bruit, lymphadenopathy, thyromegaly - Routine Respiratory Exam Present: decreased breath sounds (markedly decreased right lung base. Slightly coarse on the left, but much clearer) - Routine Cardiovascular Exam Present: RRR, S1 (distant), S2 (distant), no murmur - Routine Abdominal Exam Present: soft, non tender, distended. Absent: normoactive bowel sounds ( decreased) - Routine Extremities Exam Present: no edema, extremity cold to touch. Absent: cyanosis, clubbing, pulses intact, normal capillary refill - Routine Neurological Exam Absent: alert - Routine Psychiatric Exam Present: unable to assess - Urinary Catheter Management Urethral Cath placed during this visit: yes Insertion date: 03/25/17 Insertion time: 03:10 Results 03/25/17 02:39 03/25/17 02:39 Cardiac Enzymes 03/24/17 03/25/17 Range/Units 18:52 02:39 AST 300 H (17-59) U/L Troponin I 0.095 D 0.082 (0-0.12) ng/ml Coagulation 03/25/17 03/25/17 Range/Units 02:39 12:00 APTT 133.9 H* 93.0 H (24-36) SEC CBC 03/25/17 Range/Units 02:39 WBC 10.0 (4.5-11.0) T/MM3 RBC 4.64 (4.50-5.90) M/MM3 Hgb 14.2 (13.5-17.5) GM/DL Hct 44.2 (41-53) % Plt Count 103 L (130-400) T/MM3 Neut # (Auto) 8.4 H (1.8-7.7) T/MM3 Lymph # (Auto) 0.6 L (1-4.8) T/MM3 [place] # (Auto) 1.0 H (0-0.8) T/MM3 Eos # (Auto) 0.0 (0-0.5) T/MM3 Baso # (Auto) 0.0 (0-0.2) T/MM3 Comprehensive Metabolic Panel 03/25/17 Range/Units 02:39 Sodium 139 (134-144) MEQ/L Potassium 3.6 (3.6-5) MEQ/L Chloride 98 (98-107) MEQ/L Carbon Dioxide 32 H (22-30) MEQ/L BUN 51.0 H* (9-20) MG/DL Creatinine 2.2 H D (0.8-1.5) MG/DL Glucose 106 (75-110) MG/DL Calcium 8.3 L D (8.4-10.2) MG/DL AST 300 H (17-59) U/L ALT 86 H (21-72) U/L Alkaline Phosphatase 117 (38-126) U/L Total Protein 6.3 (6.3-8.2) G/DL Albumin 3.0 L (3.5-5.0) G/DL Intake and Output 03/25/17 03/25/17 03/25/17 06:59 14:59 22:59 Intake Total 737.5 / 737.5 169.167 / 169.167 Output Total 5 / 5 Balance 717.5 / 717.5 149.167 / 149.167 -5 / -5 Intake: IV 737.5 / 737.5 169.167 / 169.167 Heparin Drip 20,000 unit In 500 237.5 / 237.5 169.167 / 169.167 ml @ 23 mls/hr IV .[id number] WALT Rx#:[id number] NS 500ml 500 ml @ 250 mls/hr IV 500 / 500 .Q2H ONE Rx#:[id number] Output: Urine Amount (Catheter) Other: Urine Appearance Cloudy Sediment Cloudy Sediment Sediment Urine Color Brown Brown Red Brown Red Brown Weight 112.2 kg Patient Weight 03/26/17 06:59 Weight 112.2 kg - Imaging and Cardiology EKG results: report reviewed, image reviewed, other (telemetry reviewed in detail) Assessment and Plan - Attestation Attestation Narrative: 03/25/17 18:51 Acute hypotension and shock with acute renal failure and elevated liver function Differential diagnosis includes pulmonary emboli ,hypovolemia, sepsis and a component of cardiac shock due to poor cardiac output and severe cardiomyopathy Congestive heart failure predominantly right-sided Right atrial clots, likely emboli in transit Suspected pulmonary emboli with possible pulmonary infarction and the unilateral pleural effusion Severe ischemic cardiopathy Pulmonary hypertension Coronary artery disease status post CABG Renal insufficiency acute on chronic Elevated liver enzymes likely from CHF Peripheral artery disease with feet ulcers and toes ' gangrene COPD Remote history of traumatic intracranial bleed/subdural hematoma DO NOT RESUSCITATE order Short-term prognosis unfortunately appears very poor due to acute multiorgan failure .He is moribund and unlikely to survive current episode. If full support with medical therapy is contemplated, then would give IV fluid boluses such as normal saline 250 -500 cc with IV Bumex 2-4 mg boluses or a drip and see if we can force his anuric renal failure into nonoliguric, and frankly I am doubtful that. Support with pressors such as dopamine starting at 3-5 g aiming for mean arterial pressure of 60 mmHg maybe started. Consider obtaining blood cultures and empiric antibiotics Again patient and have clearly indicated a wanting aggressive measures including hemodialysis. We will hold amiodarone at this time Reiterated to the today and I'm going to go back and discuss with the patient's son to help them during this difficult time. Shared my recommendations with Dr. Urias hospitalist who is managing the patient. Critical care time spent one hour including a family conference Hospital Course Summary Disclaimer: The visit summary below is not to be considered part of the above Progress Note. Hospital Course: 03/24/17 Admit, inpatient status under the hospitalist service. Regarding heart failure exacerbation, will consult Dr. Long. Monitor on telemetry, trend troponin. Lasix 40 mg IV was given in the ED, will monitor response to this. We may need to reattempt placing a Lassiter, which was unsuccessful in the emergency department. Suspect elevated LFTs are a result of liver congestion secondary to heart failure. Echo has been ordered. VIOLET - will monitor response to diuresis. Consider renal sono if no improvement. Consult Dr. Rivera for bilateral toe ulcers. May need arterial dopplers and/ or intervention. Start nystatin powder for inguinal candidiasis. Check D-dimer d/t hemoptysis - though suspect his dyspnea/hypoxia are from CHF rather than pulmonary emboli. However, CXR was abnormal with a dilated appearing aorta, though CXR is malrotated. Check TSH and A1c. Discussed with Dr. King, Dr. Long and with Ronnie Stroud APRN. Code status: DNR.
--- NOTE | 2017-03-25 20:44 | Progress Note ---
- Date 03/25/17 Subjective: Seen in the ICU: He has been minimally interactive throughout today. He denies any pain. Family expresses concern that is overall poor status but understands that his condition is very tenuous. Objective Vital signs: Temperature 97.3 F 03/25/17 03:15 Pulse Rate 55 L 03/25/17 18:16 Respiratory Rate 27 H 03/25/17 18:16 Blood Pressure 74/50 03/25/17 14:00 Pulse Oximetry 100 03/25/17 18:16 Rhythm: Normal Sinus Rhythm Height/Weight/BMI: Height 6 ft Weight 112.2 kg Body Mass Index 33.2 - Constitutional Present: well nourished, well developed, somnolent - Routine HEENT Exam Head: Present: atraumatic. Absent: normocephalic Eye: Present: EOMI ENT: Present: mucous membranes moist, dentition normal - Routine Respiratory Exam Present: CTA bilaterally. Absent: wheezes - Routine Cardiovascular Exam Present: RRR, S1, S2, murmur, rubs - Routine Abdominal Exam Present: soft, normoactive bowel sounds, non distended. Absent: tenderness - Routine Extremities Exam Present: normal capillary refill - Routine Skin Exam Present: dry, warm - Routine Neurological Exam Present: CN II-XII intact. Absent: alert, oriented X3 - Routine Lymphatic Exam Lymphatic: Absent: adenopathy - Routine Psychiatric Exam Present: unable to assess Results - Labs CBC & Chem 7: 03/26/17 06:24 03/26/17 06:24 Assessment and Plan (1) Pulmonary infarction Current visit: Yes Status: Acute (2) Systolic congestive heart failure, NYHA class 4 Current visit: Yes Status: Acute (3) Medical non-compliance Current visit: Yes Status: Acute (4) [id number] kidney injury Current visit: Yes Status: Acute (5) Anuria Current visit: Yes Status: Acute Assessment and Plan: Admitting diagnoses pulmonary infarction multiple large atrial thrombi Acute systolic congestive heart failure exacerbation. Hemoptysis and hypoxia. Acute kidney injury with creatinine of 2.0 on admission Hyperbilirubinemia and transaminitis Bilateral great toe ulcerations. Inguinal candidiasis Chronic comorbidities Ischemic cardiomyopathy, last known ejection fraction of 25-30% in 2013 Coronary artery disease. Atrial fibrillation, paroxysmal. COPD Venous hypertension. Diffuse osteoarthritis. Gout Plan continue patient in the intensive care unit on the heparin drip patient has been an uric throughout the course the day. Starting fluids at 150 ML normal saline per hour blood pressure has been marginally low. At recommendation of Dr. Long beginning a low dose of dopamine continue on telemetry, trend troponin. Discontinue diuretics at this time VIOLET - will monitor response to diuresis. Consider renal sono if no improvement. Code status: DNR. The high probability of mortality was discussed with the patient's family members again. They are hopeful that he will improve and quote turn a corner "but have repeated his code status as DNR. Therefore we're going ahead with fluids and dopamine. Critical care time performed 42 minutes without procedures DVT Prophylaxis: Heparin drip - Physician Narrative Narrative: Date: 03/25/17 Time: 2043 Hospital Course Summary Disclaimer: The visit summary below is not to be considered part of the above Progress Note. Hospital Course: 03/24/17 Admit, inpatient status under the hospitalist service. Regarding heart failure exacerbation, will consult Dr. Long. Monitor on telemetry, trend troponin. Lasix 40 mg IV was given in the ED, will monitor response to this. We may need to reattempt placing a Lassiter, which was unsuccessful in the emergency department. Suspect elevated LFTs are a result of liver congestion secondary to heart failure. Echo has been ordered. VIOLET - will monitor response to diuresis. Consider renal sono if no improvement. Consult Dr. Rivera for bilateral toe ulcers. May need arterial dopplers and/ or intervention. Start nystatin powder for inguinal candidiasis. Check D-dimer d/t hemoptysis - though suspect his dyspnea/hypoxia are from CHF rather than pulmonary emboli. However, CXR was abnormal with a dilated appearing aorta, though CXR is malrotated. Check TSH and A1c. Discussed with Dr. King, Dr. Long and with Ronnie Stroud APRN. Code status: DNR. Acute systolic congestive heart failure exacerbation. Hemoptysis and hypoxia. Acute kidney injury with creatinine of 2.0 on admission Hyperbilirubinemia and transaminitis Bilateral great toe ulcerations. Inguinal candidiasis Chronic comorbidities Ischemic cardiomyopathy, last known ejection fraction of 25-30% in 2013 Coronary artery disease. Atrial fibrillation, paroxysmal. COPD Venous hypertension. Diffuse osteoarthritis. Gout Plan Admit, inpatient status under the hospitalist service. Regarding heart failure exacerbation, will consult Dr. Long. Monitor on telemetry, trend troponin. Lasix 40 mg IV was given in the ED, will monitor response to this. We may need to reattempt placing a Lassiter, which was unsuccessful in the emergency department. Suspect elevated LFTs are a result of liver congestion secondary to heart failure. Echo has been ordered. VIOLET - will monitor response to diuresis. Consider renal sono if no improvement. Consult Dr. Rivera for bilateral toe ulcers. May need arterial dopplers and/ or intervention. Start nystatin powder for inguinal candidiasis. Check D-dimer d/t hemoptysis - though suspect his dyspnea/hypoxia are from CHF rather than pulmonary emboli. However, CXR was abnormal with a dilated appearing aorta, though CXR is malrotated. Check TSH and A1c. Discussed with Dr. King, Dr. Long and with Ronnie Stroud APRN. Code status: DNR. 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 echocardiogram has been performed and shows extensive clotting through the right atrium. Dr. Long and I have had a 20 minute long conversation with both patient and his . We explained extensively the very high risk of mortality that the patient is facing and offered the patient the opportunity to treat here in our ICU versus sending to [place] for the potential of further invasive procedures which may be lifesaving in the event that the atrial clots further emboli's into the pulmonary system. The patient made reasonable argument in front of his for not going to [place] and restated his position in with his DNR status. Patient is being transferred to the intensive care unit with a high-dose bolus heparin drip. He has knowingly declined transfer for potential cardiac interventional radiology procedures at this time. Critical care time performed 40 minutes without procedures
[2017-03-25] MEDS: DOPamine PREMIX 400 MG/250 ML BAG IV PRN (20:58)
[2017-03-25] MEDS ORDERED: LORazepam 1 MG TABLET PO SCH (21:00)
[2017-03-25] MEDS: NS 1,000 ML IV SCH (21:04)
[2017-03-25] MEDS: DiphenhydrAMINE 50 MG/ML INJECTION IVP PRN (22:34)
[2017-03-26] MEDS: NS 1,000 ML IV SCH ×2 (04:04→10:30)
--- NOTE | 2017-03-26 07:27 | Pharmacy Consult ---
Pharmacy Consult-Heparin - Laboratory Information Heparin Plt Count 103 T/MM3 (130-400) L 03/25/17 02:39 APTT 71.9 SEC (24-36) H 03/26/17 06:24 HEPARIN THERAPY: Heparin is at steady state levels infusing at 920 units/hr (23ml/hr). Will continue at present rate. Target PTT = 55 - 83 sec. last night PTT = 74.2 this am PTT = 71.9 Repeat PTT for tomorrow morning + repeat Platelets as well. Thank you
[2017-03-26] MEDS: DOPamine PREMIX 400 MG/250 ML BAG IV PRN ×2 (08:24→23:30)
[2017-03-26] MEDS: HEPARIN DRIP 20,000 UNIT/500 ML BAG IV SCH (10:26)
--- NOTE | 2017-03-26 11:34 | Progress Note ---
DATE 03/26/2017 FINDINGS Mr. De Leon today was awake, alert and without complaints. EXAM VITAL SIGNS: Temperature 99, pulse 66, respirations 25, blood pressure 137/74. EXTREMITIES: Attention was focused to his feet. The eschars remain to be intact involving the tip of his great toes. There has been no further progression of necrosis. No surrounding periwound erythema. ASSESSMENT 77-year-old gentleman with multiple medical comorbidities who was found to have a right atrial clot, deep vein thrombosis, peripheral arterial disease with ischemic ulcerations involving tip of great toes. PLAN From a wound standpoint the patient remains stable. I recommend that we continue to simply paint the dry eschars involving the tip of the great toes with Betadine followed by gauze on a daily basis. Secondary to the fact the patient is without an acute process in regard to a wound standpoint I will not see the patient on an every- day basis but will see him intermittently during his hospitalization. AMADEO
[2017-03-26] MEDS: SALINE FLUSH 10ml SYRINGE IVF PRN ×2 (14:40→15:58)
[2017-03-26] MEDS: DiphenhydrAMINE 50 MG/ML INJECTION IVP PRN ×2 (14:40→15:58)
--- NOTE | 2017-03-26 17:13 | Cardiology Progress Note ---
Subjective Interval history: Mr. De Leon c/p low abdominal pressure and "unable to urinate" . much more alert . He has randall catheter in place and dark urine 15-20 cc ,last hr up to 30Ml. "I feel horrible" denies angina or cp. denies dyspnea. remains in bed. Dopamine and fluids started last night with improvement . appetite remains poor but drinking fluids and cleared for PO inatke. no BM or flatus IVF turned just down to 50 ml /hr Bp much better on Dopamine 5 mcg/k/m, up 140/70-80's Remains on 4 L oxygen nasal cannula . I&O's reviewed weight is up laboratory noted BUN/creatinine up platelets down a little. Venous Doppler showed nonocclusive DVT. He is on heparin drip. CXR gastric dilatation Telemetry shows regular rythm at 90-100 likely sinus rhythm with occ. PVCs discussed with the at the [facility] and his RN detail Exam Vital signs: Temperature 97.5 F 03/26/17 16:05 Pulse Rate 91 03/26/17 15:30 Respiratory Rate 28 H 03/26/17 15:30 Blood Pressure 132/83 03/26/17 15:00 Pulse Oximetry 97 03/26/17 15:30 - Constitutional mild distress - Routine HEENT Exam Head: Present: normocephalic, atraumatic Eye: Present: EOMI, PERRL ENT: Present: mucous membranes dry - Routine Neck Exam Present: normal carotid upstroke. Absent: JVD, carotid bruit, lymphadenopathy, thyromegaly - Routine Respiratory Exam Present: dyspnea (mild), decreased breath sounds (B bases ) - Routine Cardiovascular Exam Present: RRR, no murmur - Routine Abdominal Exam Present: soft, non tender. Absent: normoactive bowel sounds (decraesed), rebound, guarding - Routine Exam Penile: Present: swelling - Routine Extremities Exam Present: edema (pitting edema in B upper thighs ,however no significant ankle edema), extremity cold to touch. Absent: pulses intact, normal capillary refill - Routine Skin Exam Present: dry. Absent: intact, cyanosis - Routine Neurological Exam Present: alert, CN II-XII intact, moving all extremities, vision grossly intact , normal speech. Absent: motor deficit, altered mental status, hemineglect, facial asymmetry - Routine Psychiatric Exam Present: normal thought process, cooperative - Urinary Catheter Management Urethral Cath placed during this visit: yes Insertion date: 03/25/17 Insertion time: 03:10 Results 03/26/17 06:24 03/26/17 06:24 Cardiac Enzymes 03/26/17 Range/Units 06:24 B-Natriuretic Peptide 46750 H (0-175) pg/mL Coagulation 03/25/17 03/26/17 03/26/17 Range/Units 20:09 06:24 06:24 APTT 74.2 H 71.9 H (24-36) SEC B-Natriuretic Peptide 09958 H (0-175) pg/mL CBC 03/26/17 Range/Units 06:24 WBC 13.5 H (4.5-11.0) T/MM3 RBC 5.18 (4.50-5.90) M/MM3 Hgb 15.4 (13.5-17.5) GM/DL Hct 49.7 D (41-53) % Plt Count 125 L (130-400) T/MM3 Neut # (Auto) Not performed Lymph # (Auto) Not performed [place] # (Auto) Not performed Eos # (Auto) Not performed Baso # (Auto) Not performed Comprehensive Metabolic Panel 03/26/17 Range/Units 06:24 Sodium 138 (134-144) MEQ/L Potassium 3.7 (3.6-5) MEQ/L Chloride 98 (98-107) MEQ/L Carbon Dioxide 30 (22-30) MEQ/L BUN 61.0 H* (9-20) MG/DL Creatinine 2.5 H D (0.8-1.5) MG/DL Glucose 108 (75-110) MG/DL Calcium 7.7 L (8.4-10.2) MG/DL Intake and Output 03/26/17 03/26/17 03/26/17 06:59 14:59 22:59 Intake Total 1542.304 / 1782.695 5332.003 / 1270.003 188.076 / 188.076 Output Total 43 / 43 103 / 103 30 / 30 Balance 1499.304 / 0755.226 0910.003 / 1167.003 158.076 / 158.076 Intake: IV 1502.304 / 6792.333 6893.003 / 1210.003 188.076 / 188.076 DOPamine PREMIX 400 mg In 250 168.304 / 168.304 168.304 / 168.304 42.076 / 42.076 ml @ 5 MCG/KG/MIN 21.038 mls/hr IV .[id number] PRN Rx#:[id number] Heparin Drip 20,000 unit In 500 184 / 184 183.366 / 183.366 46 / 46 ml @ 23 mls/hr IV .[id number] WALT Rx#:[id number] Ns 1,000 ml @ 150 mls/hr IV . 1150 / 1150 858.333 / 858.333 100 / 100 Q6H40M WALT Rx#:[id number] Oral 40 / 40 60 / 60 Output: Urine Amount (Catheter) 43 / 43 103 / 103 30 / 30 Other: Urine Appearance Cloudy Cloudy Cloudy Sediment Sediment Sediment Hematuria Urine Color Red Brown Yellow Brown Tea Colored Weight 115.3 kg Patient Weight 03/27/17 06:59 Weight 115.3 kg Assessment and Plan - Attestation Attestation Narrative: 03/26/17 17:18 Acute hypotension improved Differential diagnosis includes intravascular hypovolemia, and poor cardiac output and severe cardiomyopathy Congestive heart failure predominantly right-sided Right atrial clots, likely emboli in transit/prob . PE/ +DVT Suspected pulmonary emboli with possible pulmonary infarction and the unilateral pleural effusion Severe ischemic cardiopathy Pulmonary hypertension Coronary artery disease status post CABG Renal insufficiency acute on chronic Elevated liver enzymes likely from CHF Peripheral artery disease with feet ulcers and toes ' gangrene COPD Remote history of traumatic intracranial bleed/subdural hematoma DO NOT RESUSCITATE order improved but remains in serious condition due to acute multiorgan failure and very poor baseline and functional capacity and noncompliance . wean Dopamine gtt agree w current IVF. based on BP and urine output consider small fluid boluses resume Amiodarone now that BP improved . (this drug has a very long half life any way ) monitor CMP 03/26/17 17:29 Hospital Course Summary Disclaimer: The visit summary below is not to be considered part of the above Progress Note. Hospital Course: Acute systolic congestive heart failure exacerbation. Hemoptysis and hypoxia. Acute kidney injury with creatinine of 2.0 on admission Hyperbilirubinemia and transaminitis Bilateral great toe ulcerations. Inguinal candidiasis Chronic comorbidities Ischemic cardiomyopathy, last known ejection fraction of 25-30% in 2013 Coronary artery disease. Atrial fibrillation, paroxysmal. COPD Venous hypertension. Diffuse osteoarthritis. Gout
--- NOTE | 2017-03-26 18:48 | Progress Note ---
- Date 03/26/17 Subjective: Patient is more alert. Still feels weak with significant shortness of breath and malaise. His biggest complaint is pain in the lower pelvis and a feeling that he needs to urinate but cannot go. He's not had a bowel movement since Tuesday but has not had significant oral intake according to his since then Objective Vital signs: Temperature 97.5 F 03/26/17 16:05 Pulse Rate 91 03/26/17 15:30 Respiratory Rate 28 H 03/26/17 15:30 Blood Pressure 132/83 03/26/17 15:00 Pulse Oximetry 97 03/26/17 15:30 Rhythm: Sinus Tachycardia Height/Weight/BMI: Height 6 ft Weight 115.3 kg Body Mass Index 33.2 - Constitutional Present: moderate distress, well developed, obese, disheveled - Routine HEENT Exam Head: Present: normocephalic, atraumatic Eye: Present: EOMI, PERRL ENT: Present: mucous membranes moist, dentition normal - Routine Respiratory Exam Present: CTA bilaterally. Absent: wheezes - Routine Cardiovascular Exam Present: S1, S2, tachycardia. Absent: murmur - Routine Abdominal Exam Present: soft, normoactive bowel sounds, non distended. Absent: tenderness - Routine Extremities Exam Present: edema, normal capillary refill - Routine Skin Exam Present: dry, warm - Routine Neurological Exam Present: alert, CN II-XII intact, altered mental status - Routine Lymphatic Exam Lymphatic: Absent: adenopathy - Routine Psychiatric Exam Present: normal affect Results - Labs CBC & Chem 7: 03/26/17 06:24 03/26/17 06:24 Assessment and Plan (1) Pulmonary infarction Current visit: Yes Status: Acute (2) Systolic congestive heart failure, NYHA class 4 Current visit: Yes Status: Acute (3) Medical non-compliance Current visit: Yes Status: Acute (4) Vwtak-wi-lmhjoyu kidney injury Current visit: Yes Status: Acute (5) Anuria Current visit: Yes Status: Acute Assessment and Plan: Admitting diagnoses pulmonary infarction multiple large atrial thrombi Acute kidney injury with anuria Acute systolic congestive heart failure exacerbation. Hemoptysis and hypoxia. Hyperbilirubinemia and transaminitis Bilateral great toe ulcerations. Inguinal candidiasis Chronic comorbidities Ischemic cardiomyopathy, last known ejection fraction of 25-30% in 2013 Coronary artery disease. Atrial fibrillation, paroxysmal. COPD Venous hypertension. Diffuse osteoarthritis. Gout Plan continue patient in the intensive care unit on the heparin drip patient has been an uric for 24 hours until this morning at which point he has started making moderate fluids at 20 to [address] Long is weaning a low dose of dopamine continue on telemetry, will have a bladder scan performed and patient may get an enema if he appears to further require Code status: DNR. Critical care time performed 40 minutes without procedures DVT Prophylaxis: Heparin drip - Physician Narrative Narrative: Date: 03/26/17 Time: 184 Hospital Course Summary Disclaimer: The visit summary below is not to be considered part of the above Progress Note. Hospital Course: 03/24/17 Admit, inpatient status under the hospitalist service. Regarding heart failure exacerbation, will consult Dr. Long. Monitor on telemetry, trend troponin. Lasix 40 mg IV was given in the ED, will monitor response to this. We may need to reattempt placing a Lassiter, which was unsuccessful in the emergency department. Suspect elevated LFTs are a result of liver congestion secondary to heart failure. Echo has been ordered. VIOLET - will monitor response to diuresis. Consider renal sono if no improvement. Consult Dr. Rivera for bilateral toe ulcers. May need arterial dopplers and/ or intervention. Start nystatin powder for inguinal candidiasis. Check D-dimer d/t hemoptysis - though suspect his dyspnea/hypoxia are from CHF rather than pulmonary emboli. However, CXR was abnormal with a dilated appearing aorta, though CXR is malrotated. Check TSH and A1c. Discussed with Dr. King, Dr. Long and with Ronnie Stroud APRN. Code status: DNR. Acute systolic congestive heart failure exacerbation. Hemoptysis and hypoxia. Acute kidney injury with creatinine of 2.0 on admission Hyperbilirubinemia and transaminitis Bilateral great toe ulcerations. Inguinal candidiasis Chronic comorbidities Ischemic cardiomyopathy, last known ejection fraction of 25-30% in 2014 Coronary artery disease. Atrial fibrillation, paroxysmal. COPD Venous hypertension. Diffuse osteoarthritis. Gout Plan Admit, inpatient status under the hospitalist service. Regarding heart failure exacerbation, will consult Dr. Long. Monitor on telemetry, trend troponin. Lasix 40 mg IV was given in the ED, will monitor response to this. We may need to reattempt placing a Lassiter, which was unsuccessful in the emergency department. Suspect elevated LFTs are a result of liver congestion secondary to heart failure. Echo has been ordered. VIOLET - will monitor response to diuresis. Consider renal sono if no improvement. Consult Dr. Rivera for bilateral toe ulcers. May need arterial dopplers and/ or intervention. Start nystatin powder for inguinal candidiasis. Check D-dimer d/t hemoptysis - though suspect his dyspnea/hypoxia are from CHF rather than pulmonary emboli. However, CXR was abnormal with a dilated appearing aorta, though CXR is malrotated. Check TSH and A1c. Discussed with Dr. King, Dr. Long and with Ronnie Stroud APRN. Code status: DNR. 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 echocardiogram has been performed and shows extensive clotting through the right atrium. Dr. Long and I have had a 20 minute long conversation with both patient and his . We explained extensively the very high risk of mortality that the patient is facing and offered the patient the opportunity to treat here in our ICU versus sending to [facility] for the potential of further invasive procedures which may be lifesaving in the event that the atrial clots further emboli's into the pulmonary system. The patient made reasonable argument in front of his for not going to [facility] and restated his position in with his DNR status. Patient is being transferred to the intensive care unit with a high-dose bolus heparin drip. He has knowingly declined transfer for potential cardiac interventional radiology procedures at this time. Critical care time performed 40 minutes without procedures
[2017-03-26] MEDS ORDERED: TRAZODONE 100 MG TABLET PO SCH (21:00)
[2017-03-27] MEDS: NS 1,000 ML IV SCH ×4 (00:05→16:05)
[2017-03-27] MEDS: DiphenhydrAMINE 50 MG/ML INJECTION IVP PRN ×2 (00:31→13:25)
[2017-03-27] MEDS: SALINE FLUSH 10ml SYRINGE IVF PRN ×4 (00:35→16:01)
--- NOTE | 2017-03-27 06:44 | Pharmacy Consult ---
Pharmacy Consult-Heparin - Laboratory Information Heparin Plt Count 104 T/MM3 (130-400) L 03/27/17 06:04 APTT 63.4 SEC (24-36) H 03/27/17 06:04 HEPARIN THERAPY: DAY 4 77yo M with PE. Heparin therapy is stable infusing at 920 units/hr (23 ml/hr). Platelets are stable. Will continue at present rate. Repeat PTT tomorrow morning + Platelets. Thank you.
[2017-03-27] MEDS ORDERED: AMIODARONE 200 MG TABLET PO SCH (09:00)
[2017-03-27] MEDS: HEPARIN DRIP 20,000 UNIT/500 ML BAG IV SCH (09:02)
[2017-03-27] MEDS ORDERED: ACETAMINOPHEN 500 MG TABLET PO PRN (10:30)
--- NOTE | 2017-03-27 10:45 | Progress Note ---
- Date 03/27/17 Subjective: More SOB but not more distressed. Finally beginning to make urine on dopamine. Objective Vital signs: Temperature 97.6 F 03/27/17 08:00 Pulse Rate 89 03/27/17 00:00 Respiratory Rate 28 H 03/27/17 00:00 Blood Pressure 147/72 H 03/27/17 00:00 Pulse Oximetry 88 L 03/27/17 00:00 Rhythm: Sinus Tachycardia Height/Weight/BMI: Height 6 ft Weight 115.3 kg Body Mass Index 33.2 Results - Labs CBC & Chem 7: 03/27/17 06:07 03/27/17 07:23 Assessment and Plan (1) Pulmonary infarction Status: Acute (2) Systolic congestive heart failure, NYHA class 4 Status: Acute (3) Medical non-compliance Status: Acute (4) Ciofj-um-lrvtpls kidney injury Status: Acute (5) Anuria Status: Acute Assessment and Plan: Admitting diagnoses pulmonary infarction multiple large atrial thrombi Acute kidney injury with anuria Acute systolic congestive heart failure exacerbation. Hemoptysis and hypoxia. Hyperbilirubinemia and transaminitis Bilateral great toe ulcerations. Inguinal candidiasis Chronic comorbidities Ischemic cardiomyopathy, last known ejection fraction of 25-30% in 2013 Coronary artery disease. Atrial fibrillation, paroxysmal. COPD Venous hypertension. Diffuse osteoarthritis. Gout Plan continue patient in the intensive care unit on the heparin drip patient showing some consistency and improving urine output Dr. Long is weaning a low dose of dopamine continue on telemetry, will have a bladder scan performed and patient may get an enema if he appears to further require Code status: DNR. Critical care time performed 33 minutes without procedures - Physician Narrative Narrative: Date: 03/27/17 Time: 1045 Hospital Course Summary Disclaimer: The visit summary below is not to be considered part of the above Progress Note. Hospital Course: 03/24/17 Admit, inpatient status under the hospitalist service. Regarding heart failure exacerbation, will consult Dr. Long. Monitor on telemetry, trend troponin. Lasix 40 mg IV was given in the ED, will monitor response to this. We may need to reattempt placing a Lassiter, which was unsuccessful in the emergency department. Suspect elevated LFTs are a result of liver congestion secondary to heart failure. Echo has been ordered. VIOLET - will monitor response to diuresis. Consider renal sono if no improvement. Consult Dr. Rivera for bilateral toe ulcers. May need arterial dopplers and/ or intervention. Start nystatin powder for inguinal candidiasis. Check D-dimer d/t hemoptysis - though suspect his dyspnea/hypoxia are from CHF rather than pulmonary emboli. However, CXR was abnormal with a dilated appearing aorta, though CXR is malrotated. Check TSH and A1c. Discussed with Dr. Ethan Lou and with Ronnie Stroud APRN. Code status: DNR. Acute systolic congestive heart failure exacerbation. Hemoptysis and hypoxia. Acute kidney injury with creatinine of 2.0 on admission Hyperbilirubinemia and transaminitis Bilateral great toe ulcerations. Inguinal candidiasis Chronic comorbidities Ischemic cardiomyopathy, last known ejection fraction of 25-30% in 2013 Coronary artery disease. Atrial fibrillation, paroxysmal. COPD Venous hypertension. Diffuse osteoarthritis. Gout Plan Admit, inpatient status under the hospitalist service. Regarding heart failure exacerbation, will consult Dr. Long. Monitor on telemetry, trend troponin. Lasix 40 mg IV was given in the ED, will monitor response to this. We may need to reattempt placing a Lassiter, which was unsuccessful in the emergency department. Suspect elevated LFTs are a result of liver congestion secondary to heart failure. Echo has been ordered. VIOLET - will monitor response to diuresis. Consider renal sono if no improvement. Consult Dr. Rivera for bilateral toe ulcers. May need arterial dopplers and/ or intervention. Start nystatin powder for inguinal candidiasis. Check D-dimer d/t hemoptysis - though suspect his dyspnea/hypoxia are from CHF rather than pulmonary emboli. However, CXR was abnormal with a dilated appearing aorta, though CXR is malrotated. Check TSH and A1c. Discussed with Dr. King, Dr. Long and with Ronnie Stroud APRN. Code status: DNR. 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 echocardiogram has been performed and shows extensive clotting through the right atrium. Dr. Long and I have had a 20 minute long conversation with both patient and his . We explained extensively the very high risk of mortality that the patient is facing and offered the patient the opportunity to treat here in our ICU versus sending to [facility] for the potential of further invasive procedures which may be lifesaving in the event that the atrial clots further emboli's into the pulmonary system. The patient made reasonable argument in front of his for not going to [place] and restated his position in with his DNR status. Patient is being transferred to the intensive care unit with a high-dose bolus heparin drip. He has knowingly declined transfer for potential cardiac interventional radiology procedures at this time. Critical care time performed 40 minutes without procedures
--- NOTE | 2017-03-27 14:13 | Pulmonology Consult Note ---
History of Present Illness Consult date: 03/27/17 Requesting physician: Javier King Reason for consult: pleural effusion History of present illness: Juan De Leon is a 77-year-old male who lives at home with his with medical history significant for ischemic cardiomyopathy, coronary artery disease, paroxysmal atrial fibrillation (not anticoagulated due to history of traumatic ICH), chronic kidney disease, COPD. At baseline, he is a walker to ambulate. He sleeps in a hospital bed, and lately he has been unable to lay supine. He wears MESERET hose on a regular basis. He does not use home oxygen. Over the last 3 weeks he's been getting progressively short of breath, to the point where he has difficulty breathing even at rest. While lower extremity swelling from his knees down has improved, his has noticed increased swelling to his thighs and pelvis area. He is coughing up phlegm with blood mixed in with it. He describes penile swelling as well. He also has been complaining of lower abdominal pain and his appetite has been meniscal. He denies nausea or vomiting , dysuria or hematuria. He also has had a rash to his groin and lower abdomen and his has been applying vaginal cream but it's persisted. He has also developed ulcerations to both great toes, and his was planning on taking him to the wound care center. At baseline, both of his feet have a mottled appearance, but he denies any numbness or tingling. He states that both legs and very weak, especially his right one, and he fell a few days ago because his right leg simply gave out. His denies seeing any neurologic symptoms or strokelike symptoms. He denies fevers or chills, sinus congestion or drainage, sore throat or dysphagia. He denies dizziness, just feels very weak and has no energy. As abdominal pain and poor appetite. Has resulted in him not taking any of his home medications except for Lasix for the last 3 days. He has had some chest pain, but he states it has been higher up and not consistent with heart pain, which he is familiar with. His son and audmysld-ye-bdf have been helping him at home, and they have noticed some mild confusion. After 3 days of requiring significant assistance to stand up, combined with hemoptysis and significant shortness of breath, he finally agreed to medical examination. He was taken to the emergency department on 03/24/17. His actually states that labs were drawn yesterday with a BMP of 39,000, and creatinine of 1.8. Baseline creatinine is about 1.4. In the ED, his BUN is 45 and creatinine was 2.0. Total bilirubin was 2.0, AST was 309, ALT 89, alkaline phosphatase 148. BMP was 49, 600. Troponin was 0.040. EKG showed sinus rhythm with an intraventricular conduction delay, left axis, no acute ST segment changes. Chest x-ray revealed moderate sized right pleural effusion and right lung atelectasis or consolidation. Also, cardiomegaly. He was requiring 6 L of oxygen to maintain saturations. He was given Lasix 40 mg IV for diuresis. Nursing staff attempted a Lassiter catheter but were unsuccessful secondary to swelling. Dr. King with the hospitalist service was contacted and the patient was admitted to inpatient status. Length of stay is expected to exceed 2 overnights, to address cardiorespiratory status and wound concerns. Review of Systems Not obtainable due to the patient's inability to communicate due to his medical condition Past Medical History Ischemic cardiomyopathy, last known ejection fraction of 25-30% in 2013 Coronary artery disease. Atrial fibrillation, paroxysmal. COPD Venous hypertension. Diffuse osteoarthritis. Gout history of intracranial hemorrhage Surgical History: Debridement of left tibial anterior ulcer in May 2015. CABG [address] [place] July [address] Breanna Meng. Cardiac catheterization in July 2013. Bilateral craniotomy with epidural evacuation in July 2008. Multiple angioplasties. appendectomy. arthroscopy of knee. Wrist surgery Family History Updates: Father at age 64 of his third heart attack. His mother at age of 91 of old age and Alzheimer's. González is one of 9 siblings. 4 are still alive. Several of them have had heart disease, cancer and diabetes. A number of them have also suffered from traumatic brain bleeds, but they have all recovered from this injury. - Social History Smoking status: Former smoker (used to smoke 3 packs per day for 30 years, quit in 1991) Packs per day: 3 Packs-years: 90 Substance use type: does not use Alcohol intake frequency: does not drink (last budweiser was in 2008) Housing: house Household members: spouse Current occupational status: retired Previous occupational history: [employer] Social history: PCP - Dr. Samayoa CV - Dr. Long [facility] Patient Stated Medical History Congestive Heart Failure Yes Hypertension Yes Myocardial Infarction Yes: X3 Other Musculoskeletal Yes Cellulitis Yes Surgical History: Debridement of left tibial anterior ulcer in May 2015. CABG [address] Breanna Meng. Cardiac catheterization in July 2013. Bilateral craniotomy with epidural evacuation in July 2008. Multiple angioplasties. appendectomy. arthroscopy of knee. Wrist surgery - Social History Current residence: Apartment/Private Home Medications Home Medications Medication Instructions Recorded Confirmed Type Allopurinol [Zyloprim] 400 mg PO DAILY 03/24/17 03/24/17 History Amiodarone [Pacerone] 200 mg PO DAILY 03/24/17 03/24/17 History Aspirin [Aspirin EC] 81 mg PO DAILY 03/24/17 03/24/17 History Atorvastatin [Lipitor] 40 mg PO HS 03/24/17 03/24/17 History Carvedilol [Carvedilol] 6.25 mg PO BID 03/24/17 03/24/17 History Docusate Sodium [Colace] 100 mg PO BID 03/24/17 03/24/17 History Furosemide [Lasix] 40 mg PO BID 03/24/17 03/24/17 History Lisinopril [Prinivil] 2.5 mg PO HS 03/24/17 03/24/17 History Nitroglycerin 0.4 mg SL Q5MIN3 PRN 03/24/17 03/24/17 History Omeprazole [Prilosec] 20 mg PO DAILY 03/24/17 03/24/17 History Potassium Chloride [Klor-Con M20] 20 meq PO BID 03/24/17 03/24/17 History Allergies Allergy/AdvReac Type Severity Reaction Status Date / Time captopril Allergy Unknown Verified 03/24/17 12:58 Penicillins Allergy Unknown Verified 03/24/17 12:58 Exam Vital signs: Temperature 97.6 F 03/27/17 08:00 Pulse Rate 96 03/27/17 12:00 Respiratory Rate 27 H 03/27/17 12:00 Blood Pressure 144/88 H 03/27/17 12:00 Pulse Oximetry 94 03/27/17 12:00 - Constitutional moderate distress, obese, agitated - Routine HEENT Exam Head: Present: normocephalic, atraumatic Eye: Present: EOMI - Routine Neck Exam Present: supple - Routine Respiratory Exam Present: decreased breath sounds Comments: decreased breath sounds on the right side. no wheeze - Routine Cardiovascular Exam Present: RRR - Routine Abdominal Exam Absent: guarding - Routine Extremities Exam Present: cyanosis, clubbing - Routine Neurological Exam responds but speech difficult to understand. denies pain. Not coherent Results - Laboratory Findings CBC and BMP: 03/27/17 06:07 03/27/17 07:23 PT/INR, D-dimer D-Dimer 2698 NG/ML (0-230) H 03/24/17 12:53 Abnormal lab findings: Abnormal Labs 03/24/17 03/25/17 03/25/17 18:31 02:39 02:39 WBC RDW Std Deviation 64.8 H Plt Count 103 L MPV Neut % (Auto) 83.3 H Lymph % (Auto) 6.4 L [place] % (Auto) 9.8 H Neut # (Auto) 8.4 H Lymph # (Auto) 0.6 L [place] # (Auto) 1.0 H Abs Immat Gran (auto) 0.04 H Neutrophils % (Manual) Lymphocytes % (Manual) Neutrophils # (Manual) Lymphocytes # (Manual) Monocytes # (Manual) APTT Potassium Carbon Dioxide 32 H BUN 51.0 H* Creatinine 2.2 H D BUN/Creatinine Ratio Calculated Osmolality 282 H Calcium 8.3 L D Total Bilirubin 1.50 H AST 300 H ALT 86 H B-Natriuretic Peptide Total Protein Albumin 3.0 L Albumin/Globulin Ratio 0.9 L Ur Specific [place] >=1.030 H Urine Protein 2+ A Urine Glucose (UA) Trace A Urine Ketones Trace A Urine Bilirubin 3+ A Urine Bacteria 1+ H 03/25/17 03/25/17 03/25/17 02:39 12:00 20:09 WBC RDW Std Deviation Plt Count MPV Neut % (Auto) Lymph % (Auto) [place] % (Auto) Neut # (Auto) Lymph # (Auto) [place] # (Auto) Abs Immat Gran (auto) Neutrophils % (Manual) Lymphocytes % (Manual) Neutrophils # (Manual) Lymphocytes # (Manual) Monocytes # (Manual) APTT 133.9 H* 93.0 H 74.2 H Potassium Carbon Dioxide BUN Creatinine BUN/Creatinine Ratio Calculated Osmolality Calcium Total Bilirubin AST ALT B-Natriuretic Peptide Total Protein Albumin Albumin/Globulin Ratio Ur Specific [place] Urine Protein Urine Glucose (UA) Urine Ketones Urine Bilirubin Urine Bacteria 03/26/17 03/26/17 03/26/17 06:24 06:24 06:24 WBC 13.5 H RDW Std Deviation 67.0 H Plt Count 125 L MPV Neut % (Auto) Lymph % (Auto) [place] % (Auto) Neut # (Auto) Lymph # (Auto) [place] # (Auto) Abs Immat Gran (auto) Neutrophils % (Manual) 85.0 H Lymphocytes % (Manual) 2.0 L Neutrophils # (Manual) 11.5 H Lymphocytes # (Manual) 0.3 L Monocytes # (Manual) 1.2 H APTT 71.9 H Potassium Carbon Dioxide BUN 61.0 H* Creatinine 2.5 H D BUN/Creatinine Ratio Calculated Osmolality 284 H Calcium 7.7 L Total Bilirubin AST ALT B-Natriuretic Peptide 01997 H Total Protein Albumin Albumin/Globulin Ratio Ur Specific [place] Urine Protein Urine Glucose (UA) Urine Ketones Urine Bilirubin Urine Bacteria 03/27/17 03/27/17 03/27/17 06:04 06:04 06:07 WBC 12.6 H RDW Std Deviation 63.3 H Plt Count 104 L 105 L MPV 13.1 H Neut % (Auto) Lymph % (Auto) [place] % (Auto) Neut # (Auto) Lymph # (Auto) [place] # (Auto) Abs Immat Gran (auto) Neutrophils % (Manual) 90.0 H Lymphocytes % (Manual) 2.0 L Neutrophils # (Manual) 11.3 H Lymphocytes # (Manual) 0.3 L Monocytes # (Manual) 0.9 H APTT 63.4 H Potassium Carbon Dioxide BUN Creatinine BUN/Creatinine Ratio Calculated Osmolality Calcium Total Bilirubin AST ALT B-Natriuretic Peptide Total Protein Albumin Albumin/Globulin Ratio Ur Specific [place] Urine Protein Urine Glucose (UA) Urine Ketones Urine Bilirubin Urine Bacteria 03/27/17 07:23 WBC RDW Std Deviation Plt Count MPV Neut % (Auto) Lymph % (Auto) [place] % (Auto) Neut # (Auto) Lymph # (Auto) [place] # (Auto) Abs Immat Gran (auto) Neutrophils % (Manual) Lymphocytes % (Manual) Neutrophils # (Manual) Lymphocytes # (Manual) Monocytes # (Manual) APTT Potassium 3.0 L D Carbon Dioxide BUN 55.0 H* Creatinine 1.8 H D BUN/Creatinine Ratio 31 H Calculated Osmolality 284 H Calcium 6.3 L D Total Bilirubin AST ALT B-Natriuretic Peptide Total Protein 5.5 L Albumin 2.6 L Albumin/Globulin Ratio 0.9 L Ur Specific [place] Urine Protein Urine Glucose (UA) Urine Ketones Urine Bilirubin Urine Bacteria - Diagnostic Findings CT scan - chest: report reviewed, image reviewed (large right effusion, obstruction right main bronchus) Assessment and Plan (1) Pleural effusion Status: Acute Assessment and plan: large right pleural effusion. This is associated with decompensation of CHF with low EF, possible PE, acute renal failure. I discussed the possibility of therapeutic thoracentesis with Dr King and . Family wanting to make him comfort care at this time and the do not want any procedures performed. states his health has been failing for a long time and they do not believe he will recover from this episode. Current Visit: Yes (2) Atelectasis Status: Acute Assessment and plan: Unclear whether this is bleeding, mucus plugging or aspiration. May require bronchoscopy. Family does not want any procedures done. Current Visit: Yes - Time Spent With Patient Total time spent is greater than 50% in coordination of care (as documented) at patient's floor/unit and/or counseling patient: 25 - 35 minutes
[2017-03-27] MEDS ORDERED: MORPHINE SULFATE 10 MG SYRINGE IV PRN (14:22)
[2017-03-27 16:05] VITALS: TEMP 96
--- NOTE | 2017-03-27 16:12 | Cardiology Progress Note ---
Subjective Interval history: Mr. De Leon was just made comfort care. heparin gtt stopped per ravinder COMBS. will sign off. Exam Vital signs: Temperature 96.0 F L 03/27/17 16:00 Pulse Rate 94 03/27/17 12:00 Respiratory Rate 27 H 03/27/17 12:00 Blood Pressure 144/88 H 03/27/17 12:00 Pulse Oximetry 94 03/27/17 12:00 - Urinary Catheter Management Urethral Cath placed during this visit: yes Insertion date: 03/25/17 Insertion time: 03:10 Results 03/27/17 06:07 03/27/17 07:23 Cardiac Enzymes 03/27/17 03/27/17 Range/Units 06:04 07:23 AST Cancelled 50 D Coagulation 03/27/17 Range/Units 06:04 APTT 63.4 H (24-36) SEC CBC 03/27/17 03/27/17 Range/Units 06:04 06:07 WBC 12.6 H (4.5-11.0) T/MM3 RBC 4.92 (4.50-5.90) M/MM3 Hgb 14.7 (13.5-17.5) GM/DL Hct 46.1 (41-53) % Plt Count 104 L 105 L (130-400) T/MM3 Neut # (Auto) Not performed Lymph # (Auto) Not performed Island # (Auto) Not performed Eos # (Auto) Not performed Baso # (Auto) Not performed Comprehensive Metabolic Panel 03/27/17 03/27/17 Range/Units 06:04 07:23 Sodium Cancelled 140 Potassium Cancelled 3.0 L D Chloride Cancelled 103 Carbon Dioxide Cancelled 25 BUN Cancelled 55.0 H* Creatinine Cancelled 1.8 H D Glucose Cancelled 101 Calcium Cancelled 6.3 L D Unconjugated Bilirubin Cancelled 0.30 AST Cancelled 50 D ALT Cancelled 44 Alkaline Phosphatase Cancelled 95 Total Protein Cancelled 5.5 L Albumin Cancelled 2.6 L Intake and Output 03/27/17 03/27/17 03/27/17 06:59 14:59 22:59 Intake Total 872.715 / 872.715 307.434 / 307.434 Output Total 200 / 200 229 / 229 13 / 13 Balance 672.715 / 672.715 78.434 / 78.434 -13 / -13 Intake: IV 852.715 / 852.715 307.434 / 307.434 DOPamine PREMIX 400 mg In 250 121.782 / 121.782 105.733 / 105.733 ml @ 5 MCG/KG/MIN 21.038 mls/hr IV .[id number] PRN Rx#:[id number] Heparin Drip 20,000 unit In 500 180.933 / 180.933 185.034 / 185.034 ml @ 23 mls/hr IV .[id number] WALT Rx#:[id number] Ns 1,000 ml @ 150 mls/hr IV . 550 / 550 16.667 / 16.667 Q6H40M WALT Rx#:[id number] Intake, Catheter Irrigant 20 / Amount Output: Urine Amount (Catheter) 200 / 200 229 / 229 Other: Urine Appearance Cloudy Clear Urine Color Tea Colored Dark Adelaida Dark Adelaida Weight 115.1 kg Patient Weight 03/28/17 06:59 Weight 115.1 kg Hospital Course Summary Disclaimer: The visit summary below is not to be considered part of the above Progress Note. Hospital Course: 03/24/17 Admit, inpatient status under the hospitalist service. Regarding heart failure exacerbation, will consult Dr. Long. Monitor on telemetry, trend troponin. Lasix 40 mg IV was given in the ED, will monitor response to this. We may need to reattempt placing a Lassiter, which was unsuccessful in the emergency department. Suspect elevated LFTs are a result of liver congestion secondary to heart failure. Echo has been ordered. VIOLET - will monitor response to diuresis. Consider renal sono if no improvement. Consult Dr. Rivera for bilateral toe ulcers. May need arterial dopplers and/ or intervention. Start nystatin powder for inguinal candidiasis. Check D-dimer d/t hemoptysis - though suspect his dyspnea/hypoxia are from CHF rather than pulmonary emboli. However, CXR was abnormal with a dilated appearing aorta, though CXR is malrotated. Check TSH and A1c. Discussed with Dr. King, Dr. Long and with Ronnie Stroud APRN. Code status: DNR. Acute systolic congestive heart failure exacerbation. Hemoptysis and hypoxia. Acute kidney injury with creatinine of 2.0 on admission Hyperbilirubinemia and transaminitis Bilateral great toe ulcerations. Inguinal candidiasis Chronic comorbidities Ischemic cardiomyopathy, last known ejection fraction of 25-30% in 2014 Coronary artery disease. Atrial fibrillation, paroxysmal. COPD Venous hypertension. Diffuse osteoarthritis. Gout Plan Admit, inpatient status under the hospitalist service. Regarding heart failure exacerbation, will consult Dr. Long. Monitor on telemetry, trend troponin. Lasix 40 mg IV was given in the ED, will monitor response to this. We may need to reattempt placing a Lassiter, which was unsuccessful in the emergency department. Suspect elevated LFTs are a result of liver congestion secondary to heart failure. Echo has been ordered. VIOLET - will monitor response to diuresis. Consider renal sono if no improvement. Consult Dr. Rivera for bilateral toe ulcers. May need arterial dopplers and/ or intervention. Start nystatin powder for inguinal candidiasis. Check D-dimer d/t hemoptysis - though suspect his dyspnea/hypoxia are from CHF rather than pulmonary emboli. However, CXR was abnormal with a dilated appearing aorta, though CXR is malrotated. Check TSH and A1c. Discussed with Dr. King, Dr. Long and with Ronnie Stroud APRN. Code status: DNR. 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 echocardiogram has been performed and shows extensive clotting through the right atrium. Dr. Long and I have had a 20 minute long conversation with both patient and his . We explained extensively the very high risk of mortality that the patient is facing and offered the patient the opportunity to treat here in our ICU versus sending to [facility] for the potential of further invasive procedures which may be lifesaving in the event that the atrial clots further emboli's into the pulmonary system. The patient made reasonable argument in front of his for not going to [facility] and restated his position in with his DNR status. Patient is being transferred to the intensive care unit with a high-dose bolus heparin drip. He has knowingly declined transfer for potential cardiac interventional radiology procedures at this time. Critical care time performed 40 minutes without procedures
--- NOTE | 2017-03-27 16:22 | XRay Report ---
Indication: pleural effusion hypoxemia Procedure: XR chest 1V: Encounter: Subsequent Comparison: Subsequent chest CT of the same day, chest radiograph 03/25/2017 Technique: A single portable AP chest radiograph was obtained. Findings: Lungs and airways: Mildly decreased left lung volume with associated basilar atelectasis. Worsened now complete opacification of the right hemithorax. Normal pulmonary vasculature. Pleura: Interval increased large right pleural effusion. Small left pleural effusion. No pneumothorax. Heart and mediastinum: Aortic atherosclerosis. The cardiac mediastinal silhouette is partially secured. Osseous structures and soft tissues: No acute osseous abnormality is seen. Postoperative changes of median sternotomy. Impression: 1. Interval increased large right pleural effusion with complete opacification of the right hemithorax. 2. Decreased left lung volume and small left pleural effusion with associated left basilar atelectasis. .
--- NOTE | 2017-03-27 16:44 | CT Scan Report ---
Indication: Pleural effusion after pulm infarct? Known atrial clots Procedure: CT chest wo con: Encounter: Initial Comparison: Chest radiograph of the same day Technique: Contiguous axial CT images were obtained of the chest without intravenous contrast. Coronal and sagittal reformatted images were also obtained. Automated Exposure Control and Iterative Reconstruction dose reducing techniques were utilized. Findings: Lungs and airways: Complete relaxation atelectasis of the right lung. Partial relaxation atelectasis of the left lower lobe. No discrete pulmonary nodule or mass. Partial opacification of the right mainstem bronchus suggesting mucus plugging. Pleura: Large right and small to moderate left pleural effusions. No pneumothorax. Heart and mediastinum: The visualized thyroid gland appears normal. No mediastinal or hilar lymphadenopathy. The visualized esophagus appears normal. The heart is enlarged without pericardial effusion. Coronary arterial and thoracic aortic atherosclerotic calcifications. The great vessels of the thorax are otherwise within normal limits. Abdomen: Perihepatic and perisplenic ascites. Abdominal aortic atherosclerotic calcifications. Evaluation of the abdominal viscera limited by extensive artifact. Osseous structures and soft tissues: No axillary lymphadenopathy. No acute osseous abnormality. Degenerative disc disease of the thoracic spine. Postoperative changes of median sternotomy. Impression: 1. Large right pleural effusion and likely mucous plugging within the right mainstem bronchus resulting in complete atelectasis of the right lung. 2. Small to moderate left pleural effusion with partial relaxation atelectasis of the left lower lobe. Superimposed infection/aspiration not excluded. The above report concurs with the preliminary report provided by virtual radiologic at 1:01 PM. .
[2017-03-27 17:14] VITALS: BP 110/53; PULSE 32; RESP 5; O2SAT 75
--- NOTE | 2017-03-27 22:04 | Death Note ---
Providers - Provider Primary care physician: Hesham Samayoa DO Admitting clinician: Javier King Attending Physician: Javier King Consults: 03/24/17 15:37 Physician Consult [CONS] Routine Consulting Provider: Luis Long Reason For Exam: chf Ordering Provider has Notified [employer] Machinery [employer]: Yes 03/24/17 15:39 Physician Consult [CONS] Routine Consulting Provider: Richie Rivera Reason For Exam: ulcers to toes and rash to groin Ordering Provider has Notified [employer]: Yes 03/24/17 16:36 Case Management Consult [CONS] Routine Reason For Exam: 03/27/17 13:58 Physician Consult [CONS] Routine Consulting Provider: Richie Hernandez Reason For Exam: CXR/CT abnormalities Ordering Provider has Notified [employer]: Yes Diagnosis - PCOD Cause of : Pulmonary infarction - Contributing Factors (1) Pulmonary infarction Status: Acute (2) Systolic congestive heart failure, NYHA class 4 Status: Acute (3) Medical non-compliance Status: Acute (4) [id number] kidney injury Status: Acute (5) Anuria Status: Acute Summary - Date and Time Date of admission: 03/24/17 15:36 Date of : 03/27/17 Time of : 16:46 - Summary Details: Mr. De Leon is a 77-year-old man who would been chronically ill for many years. 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 Long since 2013. He arrived to the the emergency room and respiratory distress with bilateral lower extremity swelling. He was initially placed on Lasix and BiPAP in the emergency room and on receiving an echocardiogram showed extensive right atrial clots as well as and ejection fraction of less than 25%. The patient was transferred to the intensive care unit and placed on heparin drip. Extensive conversation with patient and family revealed that they did not want any surgical intervention at this point or even transfer to [facility] for interventional radiology. Patient and who has deep POA made an informed consent to remain in the facility here despite alternative treatments that could be performed elsewhere. They felt that his health was overall too poor. He remained in the ICU throughout the course of this day and initially had the complication of anuria likely secondary to further clotting elsewhere. He did begin making urine output at a moderate rate 24 hours before his final downturn. He began developing more respiratory difficulties and pulmonary was consulted. CT was performed and showed that he had at some point developed some occlusion of the right mainstem bronchus and that his right- sided effusion had increased extensively in the 2 days since his last chest x- ray. The patient became more altered just a little while before his pulmonary consultation with Dr. Hernandez, it was apparent that he was in more distress and when it became apparent that emergent action would be required to further prolong his life, the family realized his overall condition and moved him to comfort care. He then passed within 3 hours of this decision. It appears the most likely cause of was that he then emboli asked further significant clots into the pulmonary system as he did have an increase in bloody sputum prior to his decline. Our best hopes and wishes go out to his family and this time of loss - Additional Data Confirmation of as documented by pronouncing clinician: no pulse, no respirations, no heart sounds Family: at bedside Attending/PCP notified?: Yes Attending physician: Javier King MD Was code activated?: No Autopsy requested?: No
== END 2017-03-27 16:45 | disposition expired | DRG 175 ==
LOC: ED 12:23 → MED 15:36 → CCU 19:32
PROVIDERS: ADMIT Family Medicine; ATTEND Family Medicine